=== PATIENT | female | born 1990 | race American Indian/Alaskan Native ===

== ENCOUNTER 2019-09-21 13:32 | Emergency (ER) | payer BC, OTHER ==
[~2019-09-21] VITALS: Ht 167.6 cm; Wt 108.9 kg
--- OUTSIDE RECORDS SUMMARY | ~2019-09-21 | XMS | Encounter Summary ---
Demographics + + + | Address | [address] | | | [place] [address] | + + + | Home Phone | | + + + | Preferred Language | Unknown | + + + | Marital Status | Single | + + + | Sabianist Affiliation | Unknown | + + + | Race | Unknown | + + + | Ethnic Group | Unknown | + + + Author + + + | Author | [facility] | | | and [place] | + + + | Organization | [facility] | | | and [place] | + + + | Address | Unknown | + + + | Phone | Unavailable | + + + Support + + + + + | Name | Relationship | Address | Phone | + + + + + | Pam Argueta | ECON | [place] | | | | | [phone] | | + + + + + | Marshall Argueta | ECON | Unknown | | + + + + + Care Team Providers + +------+ + | Care Sole Rounder Name | Role | Phone | + +------+ + | Alexandrea Latham | PCP | | + +------+ + Reason for Visit + + + | Reason | Comments | + + + | Dizziness | | + + + | Slurred Speech | | + + + Auth/Cert +--------+--------+ + + + + | Status | Reason | Specialty | Diagnoses / | Referred By | Referred To | | | | | Procedures | Contact | Contact | +--------+--------+ + + + + | | | | | | | +--------+--------+ + + + + Encounter Details +--------+ + + + + | Date | Type | Department | Care Team | Description | +--------+ + + + + | 05/18/ | Emergency | [facility] | Eduardo Dao | Vertigo (Primary Dx) | | 2019 | | [facility] | S[place], DO [address] | | | | | CENTER [address] | [address] [place] | | | | | [place], [place] | [place] [address] | | | | | [address] | [phone] | | | | | [phone] | | | +--------+ + + + + Social History + +-------+ +--------+------+ | Tobacco Use | Types | Packs/Day | Years | Date | | | | | Used | | + +-------+ +--------+------+ | Former Smoker | | | | | + +-------+ +--------+------+ + +---+---+---+ | Smokeless Tobacco: | | | | | Never Used | | | | + +---+---+---+ + + +---------+ + | Alcohol Use | Drinks/Week | oz/Week | Comments | + + +---------+ + | No | | | rare | + + +---------+ + + + + | Sex Assigned at | Date Recorded | | | | + + + | Not on file | | + + + + + + + | Job Start Date | Occupation | Industry | + + + + | Not on file | Not on file | Not on file | + + + + + + + + | Travel History | Travel Start | Travel End | + + + + + + | No recent travel history available. | + + documented as of this encounter Last Filed Vital Signs + + + + + | Vital Sign | Reading | Time Taken | Comments | + + + + + | Blood Pressure | 129/64 | 05/18/2019 3:30 PM | | | | | PDT | | + + + + + | Pulse | 80 | 05/18/2019 3:30 PM | | | | | PDT | | + + + + + | Temperature | 37.2 C (98.9 F) | 05/18/2019 12:11 PM | | | | | PDT | | + + + + + | Respiratory Rate | 21 | 05/18/2019 3:30 PM | | | | | PDT | | + + + + + | Oxygen Saturation | 96% | 05/18/2019 3:30 PM | | | | | PDT | | + + + + + | Inhaled Oxygen | - | - | | | Concentration | | | | + + + + + | Weight | 108.9 kg (240 lb) | 05/18/2019 12:11 PM | | | | | PDT | | + + + + + | Height | 167.6 cm (5' 6") | 05/18/2019 12:11 PM | | | | | PDT | | + + + + + | Body Mass Index | 38.74 | 05/18/2019 12:11 PM | | | | | PDT | | + + + + + documented in this encounter Discharge Instructions Eduardo Garibay, - 05/18/2019 Modified Gilda maneuver for self-treatment of benign positional vertigo (left) This maneuver should be carried out three times a day. Repeat this daily until you are free from positional vertigo for 24 hours. AttachmentsThe following attachments cannot be sent through Care Everywhere.Dizziness (Vert igo) and Balance Problems: Staying Safe ([place]vian)documented in this encounter Medications at Time of Discharge + + + +---------+ + + | Medication | Sig | Dispensed | Refills | Start | End Date | | | | | | Date | | + + + +---------+ + + | acyclovir | Take 200 mg by mouth | | 0 | | | | (ZOVIRAX) 200 mg | 2 times daily. | | | | | | capsule | | | | | | + + + +---------+ + + | amoxicillin | Take 250 mg by mouth | | 0 | | | | (AMOXIL) 250 mg | 2 times daily. | | | | | | capsule | | | | | | + + + +---------+ + + | Cetirizine HCl | Take by mouth. | | 0 | | | | (ZYRTEC ALLERGY PO) | | | | | | + + + +---------+ + + | | Place 1 each | | 0 | | | | etonogestrel-ethinyl | vaginally See Admin | | | | | | estradiol | Instructions. Insert | | | | | | (NUVARING) | vaginally and leave | | | | | | 0.12-0.015 MG/24HR | in place for 3 | | | | | | vaginal ring | consecutive weeks, | | | | | | | then remove for 1 | | | | | | | week. | | | | | + + + +---------+ + + | FLUoxetine | Take 40 mg by mouth | | 0 | | | | (PROZAC) 40 MG | Daily. | | | | | | capsule | | | | | | + + + +---------+ + + | fluticasone | 1 spray by Nasal | | 0 | | | | (FLONASE) 50 | route Daily. | | | | | | mcg/nasal spray | | | | | | + + + +---------+ + + | | Take 5-325 mg by | | 0 | 12/15/20 | | | HYDROcodone-acetamin | mouth Twice daily. | | | 14 | | | ophen (NORCO) 5-325 | | | | | | | mg per tablet | | | | | | + + + +---------+ + + | Loratadine | Take 1 capsule by | | 0 | | | | (CLARITIN) 10 MG | mouth Daily. | | | | | | CAPS | | | | | | + + + +---------+ + + | meclizine | Take 1 tablet by | 60 | 0 | 05/18/20 | | | (ANTIVERT) 25 mg | mouth 3 times daily | tablet | | 19 | | | tablet | as needed. | | | | | + + + +---------+ + + | RANITIDINE HCL PO | Take by mouth. | | 0 | | | + + + +---------+ + + | rizatriptan | Take 1 tablet by | 30 | 3 | 07/12/20 | | | (MAXALT-FOCUSER) 10 mg | mouth as needed for | tablet | | 14 | | | disintegrating | Migraine. May repeat | | | | | | tablet | in 2 hours if | | | | | | | needed | | | | | + + + +---------+ + + | traMADol (ULTRAM) | Take 50 mg by mouth | | 0 | | | | 50 mg tablet | as needed. | | | | | + + + +---------+ + + documented as of this encounter Plan of Treatment Not on filedocumented as of this encounter Procedures + +--------+ + + + | Procedure Name | Priori | Date/Time | Associated Diagnosis | Comments | | | ty | | | | + +--------+ + + + | CT HEAD WO CONTRAST | STAT | 05/18/2019 | | Results for this | | | | 2:06 PM | | procedure are in the | | | | PDT | | results section. | + +--------+ + + + | HCG, URINE, QUAL | STAT | 05/18/2019 | | Results for this | | | | 1:36 PM | | procedure are in the | | | | PDT | | results section. | + +--------+ + + + | URINALYSIS WITH | STAT | 05/18/2019 | | Results for this | | MICROSCOPIC | | 1:36 PM | | procedure are in the | | | | PDT | | results section. | + +--------+ + + + | EXTRA GREEN TOP TUBE | STAT | 05/18/2019 | | Results for this | | | | 12:32 PM | | procedure are in the | | | | PDT | | results section. | + +--------+ + + + | EXTRA GOLD TOP TUBE | STAT | 05/18/2019 | | Results for this | | | | 12:32 PM | | procedure are in the | | | | PDT | | results section. | + +--------+ + + + | EXTRA BLUE TOP TUBE | STAT | 05/18/2019 | | Results for this | | | | 12:32 PM | | procedure are in the | | | | PDT | | results section. | + +--------+ + + + | CBC WITH | STAT | 05/18/2019 | | Results for this | | DIFFERENTIAL | | 12:32 PM | | procedure are in the | | | | PDT | | results section. | + +--------+ + + + | COMPREHENSIVE | STAT | 05/18/2019 | | Results for this | | METABOLIC PANEL | | 12:32 PM | | procedure are in the | | | | PDT | | results section. | + +--------+ + + + | ECG 12 LEAD | STAT | 05/18/2019 | | Results for this | | | | 12:26 PM | | procedure are in the | | | | PDT | | results section. | + +--------+ + + + documented in this encounter Results CT Head wo Contrast (05/18/2019 2:06 PM PDT) + + | Specimen | + + | | + + + + + | Narrative | Performed At | + + + | CT HEAD WO CONTRAST 05/18/2019 2:03 PM HISTORY: DIZZINESS | [facility] | | SLURRED SPEECH. COMPARISON: None. PROTOCOL: Axial images of | | | the head were obtained along with coronal and sagittal reformations. | | | FINDINGS: The brain parenchyma demonstrates no evidence for acute | | | infarct, mass lesion, or hemorrhage. The brainstem is unremarkable. | | | The cerebellum is normal. The pituitary gland is grossly normal. | | | The ventricles, cisterns, and sulci are of normal size and shape. | | | Limited evaluation of the vasculature demonstrates no acute findings. | | | The orbits show no acute findings. Paranasal sinuses are clear. | | | Mastoid air cells are normal. Calvarium, temporal bones, and | | | skull base structures are unremarkable. IMPRESSION - No acute | | | intracranial findings. If clinically indicated, MRI can be | | | considered. Dictated and Signed by: Suman Brooks MD | | | Electronically signed: 05/18/2019 2:21 PM | | + + + + + | Procedure Note | + + | Blaze, Rad Results In - 05/18/2019 2:[address] HEAD WO CONTRAST 05/18/2019 2:03 PM | | | | HISTORY: DIZZINESS | | SLURRED SPEECH. | | | | COMPARISON: None. | | | | PROTOCOL: Axial images of the head were obtained along with coronal and sagittal | | reformations. | | | | FINDINGS: | | The brain parenchyma demonstrates no evidence for acute infarct, mass lesion, or | | hemorrhage. The brainstem is unremarkable. The cerebellum is normal. The | | pituitary gland is grossly normal. | | | | The ventricles, cisterns, and sulci are of normal size and shape. | | | | Limited evaluation of the vasculature demonstrates no acute findings. | | | | The orbits show no acute findings. Paranasal sinuses are clear. Mastoid air | | cells are normal. | | | | Calvarium, temporal bones, and skull base structures are unremarkable. | | | | IMPRESSION - | | No acute intracranial findings. | | | | If clinically indicated, MRI can be considered. | | | | Dictated and Signed by: Suman Brooks MD | | Electronically signed: 05/18/2019 2:21 PM | + + + +---------+ + + | Performing | Address | City/State/Zipcode | Phone Number | | Organization | | | | + +---------+ + + | [facility] | | | | + +---------+ + + Urinalysis With Microscopic (05/18/2019 1:36 PM PDT) + + + + + + | Component | Value | Ref Range | Performed | Pathologist | | | | | At | Signature | + + + + + + | Color | Straw | Light Yellow, | [facility] | | | | | Yellow, Straw | [facility] | | | | | | [facility] | | | | | | [facility] - | | | | | | LABORATORY | | + + + + + + | Clarity | Clear | Clear | [facility] | | | | | | [facility] | | | | | | [facility] | | | | | | [facility] - | | | | | | LABORATORY | | + + + + + + | pH, Urine | 7.0 | 5.0 - 8.0 | [facility] | | | | | | [facility] | | | | | | [facility] | | | | | | [facility] - | | | | | | LABORATORY | | + + + + + + | Specific | 1.005 | 1.001 - 1.030 | [facility] | | | [place] | | | [facility] | | | | | | [facility] | | | | | | [facility] - | | | | | | LABORATORY | | + + + + + + | Protein, | Negative | Negative | [facility] | | | Urine | | | [facility] | | | | | | [facility] | | | | | | C[facility] - | | | | | | LABORATORY | | + + + + + + | Blood, | Negative | Negative | [facility] | | | Urine | | | [facility] | | | | | | [facility] | | | | | | CENTER - | | | | | | LABORATORY | | + + + + + + | Glucose, | Negative | Negative | [facility] | | | Urine | | | [facility] | | | | | | [facility] | | | | | | CENTER - | | | | | | LABORATORY | | + + + + + + | Ketones, | Negative | Negative | [facility] | | | Urine | | | [facility] | | | | | | [facility] | | | | | | CENTER - | | | | | | LABORATORY | | + + + + + + | Bilirubin, | Negative | Negative | [facility] | | | Urine | | | [facility] | | | | | | [facility] | | | | | | CENTER - | | | | | | LABORATORY | | + + + + + + | Nitrite, | Negative | Negative | [facility] | | | Urine | | | [facility] | | | | | | [facility] | | | | | | CENTER - | | | | | | LABORATORY | | + + + + + + | Leukocyte | Trace (A) | Negative | [facility] | | | Esterase, | | | [facility] | | | Urine | | | MEDICAL | | | | | | CENTER - | | | | | | LABORATORY | | + + + + + + | Urobilinoge | Negative | 0.2 mg/dL, 1.0 | [facility] | | | n, Urine | | mg/dL, Negative | [facility] | | | | | | [facility] | | | | | | CENTER - | | | | | | LABORATORY | | + + + + + + | WBC UA | 15-25 (A) | 0 - 2 /HPF | [facility] | | | | | | [facility] | | [facility] | [facility] | [facility] | | | | | | [facility] - | | | | | | LABORATORY | | + + + + + + + + | Specimen | + + | Urine - Urine | | specimen obtained by | | clean catch | | procedure (specimen) | + + + + + + + | Performing | Address | City/State/Zipcode | Phone Number | | Organization | | | | + + + + + | [facility] | [address] | [place] | [phone] | | [facility] | | [address] | | | - LABORATORY | | | | + + + + + , Urine, Qual (05/18/2019 1:36 PM PDT) + + + + + + | Component | Value | Ref Range | Performed | Pathologist | | | | | At | Signature | + + + + + + | HCG SCREEN, | Negative | Negative | [facility] | | | URINE | | | [facility] | [facility] | | | | | | [facility] - | | | | | | LABORATORY | | + + + + + + + + | Specimen | + + | Urine - Urine | | specimen obtained by | | clean catch | | procedure (specimen) | + + + + + + + | Performing | Address | City/State/Zipcode | Phone Number | | Organization | | | | + + + + + | [facility] | [address] | [place], [place] | [phone] | | [facility] | | [address] | | | - LABORATORY | | | | + + + + + Extra Gold Top Tube (05/18/2019 12:32 PM PDT) + +-------+ + + + | Component | Value | Ref Range | Performed | Pathologist | | | | | At | Signature | + +-------+ + + + | Extra Gold | Done | | [facility] | | | Top Tube | | | [facility] | | | | | | MEDICAL | | | | | | CENTER - | | | | | | LABORATORY | | + +-------+ + + + + + | Specimen | + + | Blood | + + + + + + + | Performing | Address | City/State/Zipcode | Phone Number | | Organization | | | | + + + + + | [facility] | [address] | [place] | [phone] | | [facility] | | [address] | | | - LABORATORY | | | | + + + + + Extra Green Top Tube (05/18/2019 12:32 PM PDT) + +-------+ + + + | Component | Value | Ref Range | Performed | Pathologist | | | | | At | Signature | + +-------+ + + + | Extra Green | Done | | [facility] | | | Top Tube | | | [facility] | | | | | | [facility] | | | | | | CENTER - | | | | | | LABORATORY | | + +-------+ + + + + + | Specimen | + + | Blood | + + + + + + + | Performing | Address | City/State/Zipcode | Phone Number | | Organization | | | | + + + + + | [facility] | [address] | [place] | [phone] | | [facility] | | [address] | | | - LABORATORY | | | | + + + + + Extra Blue Top Tube (05/18/2019 12:32 PM PDT) + +-------+ + + + | Component | Value | Ref Range | Performed | Pathologist | | | | | At | Signature | + +-------+ + + + | Extra Blue | Done | | [facility] | | | Top Tube | | | [facility] | | | | | | [facility] | | | | | | CENTER - | | | | | | LABORATORY | | + +-------+ + + + + + | Specimen | + + | Blood | + + + + + + + | Performing | Address | City/State/Zipcode | Phone Number | | Organization | | | | + + + + + | [facility] | [address] | [place] | [phone] | | [facility] | | [address] | | | - LABORATORY | | | | + + + + + Comprehensive Metabolic Panel (05/18/2019 12:32 PM PDT) + + + + + + | Component | Value | Ref Range | Performed | Pathologist | | | | | At | Signature | + + + + + + | Na | 135 (L) | 136 - 145 | [facility] | | | | | mmol/L | [facility] | | | | | | [facility] | | | | | | CENTER - | | | | | | LABORATORY | | + + + + + + | K | 3.5 | 3.4 - 5.1 | [facility] | | | | | mmol/L | [facility] | | | | | | MEDICAL | | | | | | CENTER - | | | | | | LABORATORY | | + + + + + + | Cl | 103 | 98 - 107 mmol/L | [facility] | | | | | | [facility] | | | | | | MEDICAL | | | | | | CENTER - | | | | | | LABORATORY | | + + + + + + | CO2 | 23 | 20 - 31 mmol/L | [facility] | | | | | | [facility] | | | | | | [facility]ICAL | | | | | | CENTER - | | | | | | LABORATORY | | + + + + + + | Anion Gap | 9 | 3 - 16 mmol/L | [facility] | | | | | | [facility] | | | | | | [facility] | | | | | | CENTER - | | | | | | LABORATORY | | + + + + + + | Glucose | 80 | 60 - 106 mg/dL | [facility] | | | | | | [facility] | | | | | | [facility] | | | | | | CENTER - | | | | | | LABORATORY | | + + + + + + | BUN | 7 (L) | 9 - 23 mg/dL | [facility] | | | | | | [facility] | | | | | | [facility] | | | | | | CENTER - | | | | | | LABORATORY | | + + + + + + | Creatinine | 0.64 | 0.55 - 1.02 | [facility] | | | | | mg/dL | [facility] | | | | | | MEDICAL | | | | | | CENTER - | | | | | | LABORATORY | | + + + + + + | eGFR if not | >60Comment: GLOMERULAR | >=60 | [facility] | | | | FILTRATION | mL/min/1.73m2 | [facility] | | | [place] | RATE,ESTIMATED | | MEDICAL | | | | mL/min/1.24a7Mzzj than | | CENTER - | | | | 60 Chronic kidney | | LABORATORY | | | | disease,if found over a | | | | | | 3-month period.Less than | | | | | | 15 Kidney failureFor | | | | | | | | | | | | Americans,multiply the | | | | | | calculated GFR by 1.21. | | | | | | | | | | + + + + + + | Calcium | 9.6 | 8.7 - 10.4 | [facility] | | | | | mg/dL | [facility] | | | | | | MEDICAL | | | | | | CENTER - | | | | | | LABORATORY | | + + + + + + | Albumin | 4.4 | 3.2 - 4.8 g/dL | [facility] | | | | | | [facility] | | | | | | [facility] | | | | | | C[facility] - | | | | | | LABORATORY | | + + + + + + | Bilirubin | 0.3 | 0.3 - 1.2 mg/dL | [facility] | | | Total | | | [facility] | | | | | | [facility] | | | | | | CENTER - | | | | | | LABORATORY | | + + + + + + | Total | 7.5 | 5.7 - 8.2 g/dL | [facility] | | | Protein | | | [facility] | | | | | | [facility] | | | | | | CENTER - | | | | | | LABORATORY | | + + + + + + | AST | 12 | 0 - 34 U/L | [facility] | | | | | | [facility] | | | | | | [facility] | | | | | | CENTER - | | | | | | LABORATORY | | + + + + + + | ALT | 13 | 10 - 49 U/L | [facility] | | | | | | [facility] | | | | | | [facility] | | | | | | CENTER - | | | | | | LABORATORY | | + + + + + + | Alkaline | 91 | 46 - 116 U/L | [facility] | | | Phosphatase | | | [facility] | | | | | | [facility] | | | | | | CENTER - | | | | | | LABORATORY | | + + + + + + | Globulin | 3.1 | 2.1 - 3.8 g/dL | [facility] | | | | | | [facility] | | | | | | [facility] | | | | | | CENTER - | | | | | | LABORATORY | | + + + + + + | Albumin/Arcelia | 1.4 | 0.8 - 1.9 | [facility] | | | bulin Ratio | | | [facility] | | | | | | [facility]ICAL | | | | | | CENTER - | | | | | | LABORATORY | | + + + + + + | BUN/Creatin | 10.9 | | [facility] | | | ine Ratio | | | [facility] | | | | | | [facility] | | | | | | CENTER - | | | | | | LABORATORY | | + + + + + + + + | Specimen | + + | Blood | + + + + + + + | Performing | Address | City/State/Zipcode | Phone Number | | Organization | | | | + + + + + | [facility] | [address] | [place] | [phone] | | [facility] | | [address] | | | - LABORATORY | | | | + + + + + CBC with Differential (05/18/2019 12:32 PM PDT) + + + + + + | Component | Value | Ref Range | Performed | Pathologist | | | | | At | Signature | + + + + + + | WBC | 9.5 | 4.0 - 11.0 K/uL | [facility] | | | | | | [facility] | | | | | | [facility] | | | | | | [facility] - | | | | | | LABORATORY | | + + + + + + | RBC | 4.49 | 3.70 - 5.20 | [facility] | | | | | M/uL | [facility] | | | | | | [facility] | | | | | | CENTER - | | | | | | LABORATORY | | + + + + + + | Hemoglobin | 13.5 | 11.5 - 16.0 | [facility] | | | | | g/dL | [facility] | | | | | | [facility] | | | | | | CENTER - | | | | | | LABORATORY | | + + + + + + | Hematocrit | 40.1 | 34.0 - 47.0 % | [facility] | | | | | | [facility] | | | | | | [facility] | | | | | | C[facility] - | | | | | | LABORATORY | | + + + + + + | MCV | 89.3 | 83.0 - 101.0 fL | [facility] | | | | | | [facility] | | | | | | [facility] | | | | | | CENTER - | | | | | | LABORATORY | | + + + + + + | MCH | 30.1 | 28.0 - 35.0 pg | [facility] | | | | | | [facility] | | | | | | [facility] | | | | | | C[facility] - | | | | | | LABORATORY | | + + + + + + | MCHC | 33.7 | 32.0 - 36.0 | [facility] | | | | | g/dL | [facility] | | | | | | [facility] | | | | | | CENTER - | | | | | | LABORATORY | | + + + + + + | RDW-CV | 13.1 | <15.0 % | [facility] | | | | | | [facility] | | | | | | [facility] | | | | | | C[facility] - | | | | | | LABORATORY | | + + + + + + | RDW-SD | 42.7 | 35.1 - 46.3 fL | [facility] | | | | | | [facility] | | | | | | [facility] | | | | | | C[facility] - | | | | | | LABORATORY | | + + + + + + | Platelet | 378 | 140 - 440 K/uL | [facility] | | | Count | | | [facility] | | | | | | [facility] | | | | | | CENTER - | | | | | | LABORATORY | | + + + + + + | MPV | 9.3 | 6.5 - 12.4 fL | [facility] | | | | | | [facility] | | | | | | [facility] | | | | | | C[facility] - | | | | | | LABORATORY | | + + + + + + | % | 64.6 | 45.0 - 82.0 % | [facility] | | | Neutrophils | | | [facility] | | | | | | [facility] | | | | | | CENTER - | | | | | | LABORATORY | | + + + + + + | % | 27.0 | 20.0 - 45.0 % | [facility] | | | Lymphocytes | | | [facility] | | | | | | [facility] | | | | | | CENTER - | | | | | | LABORATORY | | + + + + + + | % Monocytes | 5.2 | 4.0 - 12.0 % | [facility] | | | | | | [facility] | | | | | | [facility] | | | | | | CENTER - | | | | | | LABORATORY | | + + + + + + | % | 1.9 | 0.0 - 5.0 % | [facility] | | | Eosinophils | | | [facility] | | | | | | MEDICAL | | | | | | CENTER - | | | | | | LABORATORY | | + + + + + + | % Basophils | 0.8 | 0.0 - 1.0 % | [facility] | | | | | | [facility] | | | | | | [facility] | | | | | | CENTER - | | | | | | LABORATORY | | + + + + + + | % Immature | 0.5 (H)Comment: | 0.0 - 0.4 % | [facility] | | | Granulocyte | Preliminary studies have | | [facility] | | | s | indicated the IG% | | MEDICAL | | | | and/or IG# show promise | | CENTER - | | | | as an early indicator | | LABORATORY | | | | for infection. For | | | | | | patients, use | | | | | | the special reference | | | | | | ranges listed below. | | | | + + + + + + | Absolute | 6.15 | 1.80 - 8.50 | [facility] | | | Neutrophils | | K/uL | [facility] | | | | | | MEDICAL | | | | | | CENTER - | | | | | | LABORATORY | | + + + + + + | Absolute | 2.58 | 0.60 - 3.20 | [facility] | | | Lymphocytes | | K/uL | [facility] | | | | | | MEDICAL | | | | | | CENTER - | | | | | | LABORATORY | | + + + + + + | Absolute | 0.50 | 0.00 - 1.00 | [facility] | | | Monocytes | | K/uL | [facility] | | | | | | [facility] | | | | | | CENTER - | | | | | | LABORATORY | | + + + + + + | Absolute | 0.18 | 0.00 - 0.40 | [facility] | | | Eosinophils | | K/uL | [facility] | | | | | | [facility] | | | | | | CENTER - | | | | | | LABORATORY | | + + + + + + | Absolute | 0.08 | 0.00 - 0.10 | [facility] | | | Basophils | | K/uL | [facility] | | | | | | [facility] | | | | | | CENTER - | | | | | | LABORATORY | | + + + + + + | Absolute | 0.05 (H)Comment: For | 0.00 - 0.03 | [facility] | | | Immature | patients, use | K/uL | [facility] | | | Granulocyte | the special reference | | MEDICAL | | | s | ranges listed below. | | CENTER - | | | | | | LABORATORY | | + + + + + + | % nRBC | 0 | 0 - 2 per 100 | [facility] | | | | | WBCs | [facility] | | | | | | MEDICAL | | | | | | CENTER - | | | | | | LABORATORY | | + + + + + + | Absolute | 0.00 | 0.00 - 0.01 | [facility] | | | nRBC | | K/uL | [facility] | | | | | | MEDICAL | | | | | | CENTER - | | | | | | LABORATORY | | + + + + + + + + | Specimen | + + | Blood | + + + + + | Narrative | Performed At | + + + | IMMATURE GRANULOCYTES - For patients, use the following | [facility] | | reference ranges: Trim. Absolute (K/uL) Percentage (%) | [facility] | | 1st 0.003-0.091 K/uL 0.0-0.9% 2nd 0.007-0.247 K/uL | [facility] | | 0.1-2.0% 3rd 0.018-0.456 K/uL 0.1-2.0% | - LABORATORY | + + + + + + + + | Performing | Address | City/State/Zipcode | Phone Number | | Organization | | | | + + + + + | [facility] | [address] | [place] | [phone] | | [facility] | | [id number] | | | - LABORATORY | | | | + + + + + ECG 12 lead (05/18/2019 12:26 PM PDT) + + + + + + | Component | Value | Ref Range | Performed | Pathologist | | | | | At | Signature | + + + + + + | VENTRICULAR | 93 | BPM | [facility] | | | RATE EKG | | | | | + + + + + + | ATRIAL RATE | 93 | BPM | [facility] | | + + + + + + | P-R | 172 | ms | [facility] | | | INTERVAL | | | | | + + + + + + | QRS | 84 | ms | [facility] | | | DURATION | | | | | + + + + + + | Q-T | 374 | ms | [facility] | | | INTERVAL | | | | | + + + + + + | Q-T | 465 | ms | [facility] | | | INTERVAL | | | | | | (CORRECTED) | | | | | + + + + + + | P WAVE AXIS | 52 | degrees | [facility] | | + + + + + + | QRS AXIS | 39 | degrees | [facility] | | + + + + + + | T AXIS | 24 | degrees | [facility] | | + + + + + + | INTERPRETAT | Normal sinus | | [facility] | | | ION TEXT | rhythmNormal ECGNo | | | | | | previous ECGs | | | | | | availableConfirmed by | | | | | | NATALIA CORDOVA MD ([id number]) | | | | | | on 05/19/2019 7:21:31 AM | | | | + + + + + + + + | Specimen | + + | | + + + + + | Narrative | Performed At | + + + | | | + + + + +---------+ + + | Performing | Address | City/State/Zipcode | Phone Number | | Organization | | | | + +---------+ + + | [facility] | | | | + +---------+ + + documented in this encounter Visit Diagnoses + + | Diagnosis | + + | Vertigo - Primary Dizziness and giddiness | + + documented in this encounter Administered Medications + +--------+ +-------+------+------+ | Medication Order | MAR | Action | Dose | Rate | Site | | | Action | Date | | | | + +--------+ +-------+------+------+ | meclizine (ANTIVERT) tablet 25 | Given | 05/18/20 | 25 mg | | | | mg 25 mg, Oral, ONCE, [place] | | 19 12:29 | | | | | 05/18/19 at 1220, For 1 dose | | PM PDT | | | | + +--------+ +-------+------+------+ +---+---+ | | | +---+---+ + +---------+ +--------+-------+---+ | sodium chloride 0.9% (NS) bolus | New Bag | 05/18/20 | 1,000 | 2000 | | | 1,000 mL 1,000 mL, Intravenous, | | 19 12:31 | mLs | mL/hr | | | Administer over 30 Minutes, | | PM PDT | | | | | ONCE, [facility] 05/18/19 at 1220, For 1 | | | | | | | dose | | | | | | + +---------+ +--------+-------+---+ +---+---+ | | | +---+---+ documented in this encounter
--- OUTSIDE RECORDS SUMMARY | ~2019-09-21 | XMS | Encounter Summary ---
Demographics + + + | Address | [address] | | | [place] [address] | + + + | Home Phone | | + + + | Preferred Language | Unknown | + + + | Marital Status | Single | + + + | Yarsani Affiliation | Unknown | + + + | Race | Unknown | + + + | Ethnic Group | Unknown | + + + Author + + + | Author | [facility] | | | and [place] | + + + | Organization | [facility] | | | and [place] | + + + | Address | Unknown | + + + | Phone | Unavailable | + + + Support + + + + + | Name | Relationship | Address | Phone | + + + + + | Pam Argueta | ECON | [place] | | | | | [address] | | + + + + + | Marshall Argueta | ECON | Unknown | | + + + + + Care Team Providers + +------+ + | Care Android Framework Developer Name | Role | Phone | + +------+ + | No, Physician | PCP | Unavailable | + +------+ + Reason for Visit + + + | Reason | Comments | + + + | Follow-up | migraine f/u | + + + Encounter Details +--------+---------+ + + + | Date | Type | Department | Care Team | Description | +--------+---------+ + + + | 08/13/ | Office | [facility] | Ranjan Garner | Migraines (Primary | | 2013 | Visit | NEUROLOGY JULIO CÉSAR | MD Evan Need updated | Dx); Tension | | | | [address] [facility], | address | headache; Blurred | | | | [address] [place] | | vision | | | | [place] [address] | | | | | | [phone] | | | +--------+---------+ + + + Social History + +-------+ +--------+------+ | Tobacco Use | Types | Packs/Day | Years | Date | | | | | Used | | + +-------+ +--------+------+ | Never Smoker | | | | | + +-------+ +--------+------+ + +---+---+---+ | Smokeless Tobacco: | | | | | Never Used | | | | + +---+---+---+ + + +---------+ + | Alcohol Use | Drinks/Week | oz/Week | Comments | + + +---------+ + | Yes | | | rare | + + [...] + + + | Blood Pressure | 112/74 | 08/13/2014 1:59 PM | | | | | PDT | | + + + + + | Pulse | 97 | 08/13/2014 1:59 PM | | | | | PDT | | + + + + + | Temperature | - | - | | + + + + + | Respiratory Rate | 16 | 08/13/2014 1:59 PM | | | | | PDT | | + + + + + | Oxygen Saturation | - | - | | + + + + + | Inhaled Oxygen | - | - | | | Concentration | | | | + + + + + | Weight | 90.7 kg (200 lb) | 08/13/2014 1:59 PM | | | | | PDT | | + + + + + | Height | 167.6 cm (5' 6") | 08/13/2014 1:59 PM | | | | | PDT | | + + + + + | Body Mass Index | 32.28 | 08/13/2014 1:59 PM | | | | | PDT | | + + + + + documented in this encounter Patient Instructions Patient Instructions Ranjan Garner MD - 08/13/2014 2:19 PM PDTFormatting of this n ote might be different from the original. 1) Try massage therapy 2) Butterbur and Reglan for migraines 3) MRI scan. Self-Care for Headaches Most headaches aren't serious and can be relieved with self-care. But some headaches may be a sign of another health problem like eye trouble or high blood pressure. To find the best treatment, learn what kind of headaches you get. For tension headaches, self-care will usual ly help. To treat migraines, ask your doctor for advice. It is also possible to get both ten diogo and migraine headaches. Self-care involves relieving the pain and avoiding headache triggers if you can. Ways to Reduce Pain and Tension Apply a cold compress or ice pack to the pain site. Drink fluids. If nausea makes it hard to drink, try sucking on ice. Rest. Protect yourself from bright light and loud noises. Calm your emotions by imagining a peaceful scene. Massage tight neck, shoulder, and head muscles. To relax muscles, soak in a hot bath or use a hot shower. Use Medications Aspirin or aspirin substitutes, such as ibuprofen and acetaminophen, can relieve headache. Remember: Never give aspirin to anyone 18 or younger. Track Your Headaches Keeping a headache diary can help you and your doctor identify what's causing your headache s. Note when each headache occurs. Identify your activities and the foods you've eaten 6 8 hours before the headache bega n. Look for any trends or "triggers." Signs of Tension Headache Dull pain or feeling of pressure in a tight band around your head Pain in your neck or shoulders Headache without a definite beginning or end Headache after an activity such as driving or working on a computer Signs of Migraine Throbbing pain on one or both sides of your head Nausea or vomiting Extreme sensitivity to light, sound, and smells Bright spots, flashes, or other visual changes Pain or nausea so severe that you can't continue your daily activities Call Your Doctor If You Have: A headache that lingers after a recent injury or bump to the head. A fever with a stiff neck or pain when you bend your head toward your chest. A headache along with slurred speech, changes in your vision, or numbness or weakness in your arms or legs. A headache for longer than 3 days. Headaches often, especially in the morning. [id number] [place] [address]. All rights reserve d. This information is not intended as a substitute for professional medical care. Always fo llow your healthcare professional's instructions. documented in this encounter Progress Notes Ranjan Garner MD - 08/13/2014 2:01 PM PDTFormatting of this note might be differen t from the original. Ranjan Garner MD [address] [place] [address], [address] [place] [address] Neurology Outpatient ProgressNote Patient ID: Ms. Argueta is a 23 y.o. female with a pertinent history of anxiety, depression and migrai ne headaches, following up in neurology clinic for migraine management. Ms. Argueta was las t seen 07/12/14 and an MRI of the brain was ordered. Interval History: Since last visit, Ms. Argueta has really had no further migraine headaches. She endorses "t ension headaches" every other day or so, which have increased with some recent stressful lif e events. These headaches are bandlike, bihemispheric and improve with Tylenol. Ms. Shanae zelaya has not yet tried Reglan for nausea and headache management as she has not had a migraine. She recently had her eyes examined and notes that her prescription changed dramatically. Olman macias feels that her vision is more blurred than before. She denies any vision loss, double visi on, or transient symptoms when she bends over or bears down. She has no family or personal h istory of blood clots and currently uses the Nuvaring for contraception. Ms. Argueta denies any new focal neurologic deficits. She has not yet had her MRI scan. Past Medical History: Past Medical History Diagnosis Date Anxiety Asthma Depression Kidney stones Migraine Current Medications: Current Medications acyclovir (ZOVIRAX) 200 mg capsule (Taking) Take 200 mg by mouth 2 times daily. amoxicillin (AMOXIL) 250 mg capsule Take 250 mg by mouth 2 times daily. etonogestrel-ethinyl estradiol (NUVARING) 0.12-0.015 MG/24HR vaginal ring (Taking) Place 1 each vaginally See Admin Instructions. Insert vaginally and leave in place for 3 consecuti ve weeks, then remove for 1 week. fluticasone (FLONASE) 50 mcg/nasal spray (Taking) 1 spray by Nasal route Daily. Loratadine (CLARITIN) 10 MG CAPS (Taking) Take 1 capsule by mouth Daily. metoclopramide (REGLAN) 5 MG tablet Take 2 tablets by mouth Daily as needed. rizatriptan (MAXALT-DIRECT CHILL CASTER) 10 mg disintegrating tablet Take 1 tablet by mouth as needed for Migraine. May repeat in 2 hours if needed traMADol (ULTRAM) 50 mg tablet (Taking) Take 50 mg by mouth as needed. Allergies: No Known Allergies Social history and family history are otherwise unchanged. ROS: GENERALLY: No fever, no night sweats, no anemia, + fatigue, no recent profound weight juliann nges. EYES: No eye problems, + use of corrective lenses, no eye injury, no double vision, no bli ndness. EARS, NOSE, AND THROAT: No changes in taste or smell, no hearing difficulty, no ringing in the ears, no ear drainage, no dizziness, no voice changes, no difficulty swallowing, no sig nificant snoring, no sleep apnea, no sinus problems, no major dental work. NEUROLOGICALLY: Please see the review of systems discussed above in the history of present illness. In addition, the patient has headaches. PSYCHIATRIC: + depression, no sleep disorders, + anxiety, no bipolar disorder, no psychoti c episodes. CARDIOVASCULAR: No heart attacks, no heart murmur, no heart fluttering, no chest pain, no ankle swelling. LUNG DISEASE: No shortness of breath, no cough, no tuberculosis, no bloody cough, + asthma , no emphysema/COPD. GASTROINTESTINAL: No bowel disease, no nausea or vomiting, no rectal bleeding, no constipa tion, no stool incontinence, no liver disease, no gallbladder disease, no abdominal pain, no ulcers. KIDNEY DISEASE: No urinary frequency, no painful or difficult urination, no incontinence. ENDOCRINE: No diabetes, no thyroid disease, no osteopenia or osteoporosis, no breast drain age. SKIN: No breast lumps, no skin changes, no rashes, no itches. HEMATOLOGIC/LYMPHATIC: No enlarged lymph nodes, no easy or unusual bleeding, no personal h istory of cancer. RHEUMATOLOGIC: No joint arthritis, no rheumatoid arthritis. Examination: BP 112/74 | Pulse 97 | Resp 16 | Ht 1.676 m (5' 6") | Wt 90.719 kg (200 lb) | BMI 32.30 kg/ m2 General: well developed and well nourished HEENT: sclera clear, anicteric and oropharynx clear, no lesions Cardiovascular: no murmurs, mildly tachycardic. Respiratory: clear to auscultation, no wheezes or rales and unlabored breathing Extremities: peripheral pulses normal, no pedal edema, no clubbing or cyanosis Neurologic: Mental Status: alert, oriented to person, place, and time, speech is fluent Cranial Nerves: cranial nerves II-XII are intact. Reexamination of eyes reveals no optic di sc swelling. Motor: normal 5/5 strength in all tested muscle groups and no pronator drift Sensation: normal light touch Coordination/Cerebellar: rapid alternating movements normal and finger to nose normal Gait: normal. Radiographic Review: No new imaging. Laboratory Review: None Assessment: Ms. Argueta is a 23 y.o. female with a history of anxiety, depression and migraine headach es, following up in neurology clinic for migraine management. Migraines seem under better co ntrol without intervention. Tension headaches appropriately treated with Tylenol. Change in visual acuity is concerning. Will await MRI results (scheduled for ). No alarm signs in history or physical exam suggestive of increased intracranial pressure or mass. No histo ry to suggest venous sinus thrombosis. Plan: 1) MRI Brain 2) We will call patient with results of scan given she is coming from [place] ways away. 3) May consider LP to look for pseudotumor in the future if vision changes don't have a panda arer source. 4) Return to neurology clinic in 2 months 5) Patient may try Reglan and Butterbur if migraines become an issue again. I spent 25 minutes in visitation with Catarina Anali Argueta today with the majority of time spent counselling the patient on her diagnosis, options for her care, and coordinating her c are. Electronically signed by: Ranjan Garner MD, 08/13/2014 14:12Electronically jane d by Ranjan Garner MD at 08/14/2014 10:25 AM PDTdocumented in this encounter Plan of Treatment Not on filedocumented as of this encounter Visit Diagnoses + + | Diagnosis | + + | Migraines - Primary Migraine, unspecified, without mention of intractable migraine | | without mention of status migrainosus | + + | Tension headache | + + | Blurred vision Other specified visual disturbances | + + documented in this encounter
--- OUTSIDE RECORDS SUMMARY | ~2019-09-21 | XMS | Encounter Summary ---
Demographics + + + | Address | [address] | | | [place] [address] | + + + | Home Phone | | + + + | Preferred Language | Unknown | + + + | Marital Status | Single | + + + | Anabaptism Affiliation | Unknown | + + + | Race | Unknown | + + + | Ethnic Group | Unknown | + + + Author + + + | Author | [facility] | | | and [place] | + + + | Organization | [facility] | | | and [place] | + + + | Address | Unknown | + + + | Phone | Unavailable | + + + Support + + + + + | Name | Relationship | Address | Phone | + + + + + | Pam Argueta | ECON | [place] | | | | | [address] | | + + + + + | Marshall Argueta | ECON | Unknown | | + + + + + Care Team Providers + +------+ + | Care Sewing Techniques Demonstrator Name | Role | Phone | + [...] + | 08/13/ | Office | [facility] | Ranjan Garner | Migraines (Primary | | 2013 | Visit | NEUROLOGY JULIO CÉSAR | MD Evan Need updated | Dx); Tension | | | | [address] [facility], | address | headache; Blurred | | | | [address] [place] | | vision | | | | [place] [address] | | | | | | [phone] | | | +--------+---------+ + + + [...] days. Headaches often, especially in the morning. [address]234[address]5976 [place] [address]. All rights reserve d. This information is not intended as a substitute for professional medical care. Always fo llow your healthcare professional's instructions. documented in this encounter Progress Notes Ranjan Garner MD - 08/13/2014 2:01 PM PDTFormatting of this note might be differen t from the original. Ranjan Garner MD [address] [place] [address], [address] [place] [address] Neurology Outpatient ProgressNote Patient ID: Ms. Argueta [...] tablets by mouth Daily as needed. rizatriptan (MAXALT-FACILITY MANAGER) 10 mg disintegrating tablet Take 1 tablet [...]
--- OUTSIDE RECORDS SUMMARY | ~2019-09-21 | XMS | Encounter Summary ---
Demographics + + + | Address | [address] | | | [place] [address] | + + + | Home Phone | | + + + | Preferred Language | Unknown | + + + | Marital Status | Single | + + + | Gnosticism Affiliation | Unknown | + + + | Race | Unknown | + + + | Ethnic Group | Unknown | + + + Author + + + | Author | [facility] | | | and [place] | + + + | Organization | [facility] | | | and [place] | + + + | Address | Unknown | + + + | Phone | Unavailable | + + + Support + + + + + | Name | Relationship | Address | Phone | + + + + + | Pam Argueta | ECON | [place] | | | | | [address] | | + + + + + | Marshall Argueta | ECON | Unknown | | + + + + + Care Team Providers + +------+ + | Care Assembler Radio And Electrical Name | Role | Phone | + [...] + + | 05/18/ | Emergency | [facility] | Eduardo Dao | Vertigo (Primary Dx) | | 2019 | | [facility] | Silas, DO [address] | | | | CENTER [address] | [address] [place] | | | | | [place], [place] | [place] [address] | | | | | [address] | [phone] | | | | | [phone] | | | +--------+ + + + [...] (Vert igo) and Balance Problems: Staying Safe (Ivorian)documented in this encounter Medications at Time of [...] | 3 | 07/12/20 | | | (MAXALT-ZIPPER SETTER CHAINSTITCH) 10 mg | mouth as needed for [...] - 1.030 | [facility] | | | [place] | | | [facility] | | [...] + | [facility] | [address] | [place] | [phone] | | [facility] | | [address] | | | - LABORATORY | | [...] | | | URINE | | | [facility] | | | | | | MEDICAL [...] ST. | [address] | [place], [place] | [phone] | | [facility] | | [address] | | | - LABORATORY | | [...] [address] | [place] | [phone] | | [facility] | | [address] | | | - LABORATORY | | [...] [address] | [place] | [phone] | | [facility] | | [address] | | | - LABORATORY | | [...] + | [facility] | [address] | [place] | [phone] | | [facility] | | [address] | | | - LABORATORY | | [...] mL/min/1.73m2 | [facility] | | | [place] | RATE,ESTIMATED | | MEDICAL | | | | mL/min/1.66o3Faap than | | CENTER - | | [...] [facility] | | | | | | [facility] | | | | | | [...] [address] | [place] | [phone] | | [facility] | | [address] | | | - LABORATORY | | [...] ranges: Trim. Absolute (K/uL) Percentage (%) | [facility] | | 1st 0.003-0.091 K/uL 0.0-0.9% 2nd 0.007-0.247 K/uL | [facility] | | 0.1-2.0% 3rd 0.018-0.456 K/uL 0.1-2.0% | - LABORATORY | + + + + + + + + | Performing | Address | City/State/Zipcode | Phone Number | | Organization | | | | + + + + + | [facility] | [address] | [place] | [phone] | | [facility] | | [address] | | | - LABORATORY | | [...] | | | | NATALIA CORDOVA MD ([id number]) | | | | | | on [...] PDT | | | | | ONCE, [facility] 05/18/19 at 1220, For 1 | | | | | | | dose | | | | | | + +---------+ +--------+-------+---+ +---+---+ | | | +---+---+ documented in this encounter
--- OUTSIDE RECORDS SUMMARY | ~2019-09-21 | XMS | Clinical Summary ---
Demographics + + + | Address | [address] | | | [place] [address] | + + + | Home Phone | | + + + | Preferred Language | Unknown | + + + | Marital Status | Single | + + + | Islam Affiliation | Unknown | + + + | Race | Unknown | + + + | Ethnic Group | Unknown | + + + Author + + + | Author | [facility] | | | and [place] | + + + | Organization | [facility] | | | and [place] | + + + | Address | Unknown | + + + | Phone | Unavailable | + + + Support + + + + + | Name | Relationship | Address | Phone | + + + + + | Pam Argueta | ECON | [place], [place] | | | | | [address] | | + + + + + | Marshall Argueta | ECON | Unknown | | + + + + + Care Team Providers + +------+ + | Care Visual Education Teacher Name | Role | Phone | + +------+ + | Alexandrea Latham | PCP | | + +------+ + Allergies No Known Allergies Medications + + + +---------+------+------+-------+ | Medication | Sig | Dispensed | Refills | Star | End | Statu | | | | | | t | Date | s | | | | | | Date | | | + + + +---------+------+------+-------+ | | Place 1 each | | 0 | | | Activ | | etonogestrel-ethinyl | vaginally See Admin | | | | | e | | estradiol | Instructions. Insert | | | | | | | (NUVARING) | vaginally and leave | | | | | | | 0.12-0.015 MG/24HR | in place for 3 | | | | | | | vaginal ring | consecutive weeks, | | | | | | | | then remove for 1 | | | | | | | | week. | | | | | | + + + +---------+------+------+-------+ | acyclovir | Take 200 mg by mouth | | 0 | | | Activ | | (ZOVIRAX) 200 mg | 2 times daily. | | | | | e | | capsule | | | | | | | + + + +---------+------+------+-------+ | Loratadine | Take 1 capsule by | | 0 | | | Activ | | (CLARITIN) 10 MG | mouth Daily. | | | | | e | | CAPS | | | | | | | + + + +---------+------+------+-------+ | fluticasone | 1 spray by Nasal | | 0 | | | Activ | | (FLONASE) 50 | route Daily. | | | | | e | | mcg/nasal spray | | | | | | | + + + +---------+------+------+-------+ | traMADol (ULTRAM) | Take 50 mg by mouth | | 0 | | | Activ | | 50 mg tablet | as needed. | | | | | e | + + + +---------+------+------+-------+ | amoxicillin | Take 250 mg by mouth | | 0 | | | Activ | | (AMOXIL) 250 mg | 2 times daily. | | | | | e | | capsule | | | | | | | + + + +---------+------+------+-------+ | rizatriptan | Take 1 tablet by | 30 | 3 | 06/25 | | Activ | | (MAXALT-FLIGHT FOLLOWER) 10 mg | mouth as needed for | tablet | | 06/13 | | e | | disintegrating | Migraine. May repeat | | | 14 | | | | tablet | in 2 hours if | | | | | | | | needed | | | | | | + + + +---------+------+------+-------+ +---+ + | | Additional | | | informationPatient | | | not taking. Reason: | | | Not Available, | | | Reported on 01/28/2019 | | | 1:38 PM | +---+ + + + +--------+---+------+---+-------+ | | Take 5-325 mg by | | 0 | 09/24 | | Activ | | HYDROcodone-acetamin | mouth Twice daily. | | | 03/13 | | e | | ophen (NORCO) 5-325 | | | | 14 | | | | mg per tablet | | | | | | | + + +--------+---+------+---+-------+ | FLUoxetine | Take 40 mg by mouth | | 0 | | | Activ | | (PROZAC) 40 MG | Daily. | | | | | e | | capsule | | | | | | | + + +--------+---+------+---+-------+ | RANITIDINE HCL PO | Take by mouth. | | 0 | | | Activ | | | | | | | | e | + + +--------+---+------+---+-------+ | Cetirizine HCl | Take by mouth. | | 0 | | | Activ | | (ZYRTEC ALLERGY PO) | | | | | | e | + + +--------+---+------+---+-------+ | meclizine | Take 1 tablet by | 60 | 0 | 07/2 | | Activ | | (ANTIVERT) 25 mg | mouth 3 times daily | tablet | | 5/20 | | e | | tablet | as needed. | | | 19 | | | + + +--------+---+------+---+-------+ Active Problems Not on file Family History + + +------+ + | Medical History | Relation | Name | Comments | + + +------+ + | High blood pressure | Father | | | + + +------+ + | Substance abuse | Mother | | alcoholism-mother and father | + + +------+ + + +------+--------+ + | Relation | Name | Status | Comments | + +------+--------+ + | Father | | | | + +------+--------+ + | Mother | | | | + +------+--------+ + Social History + +-------+ +--------+------+ | [...] recent travel history available. | + + Last Filed Vital Signs + + + + + | Vital Sign | Reading | Time Taken | Comments | + + + + + | Blood Pressure | 118/105 | 05/18/2019 3:45 PM | | | | | PDT | | + + + + + | Pulse | 92 | 05/18/2019 3:45 PM | | | | | PDT | | + + + + + | Temperature | 37.2 C (98.9 F) | 05/18/2019 12:11 PM | | | | | PDT | | + + + + + | Respiratory Rate | 22 | 05/18/2019 3:45 PM | | | | | PDT | | + + + + + | Oxygen Saturation | 97% | 05/18/2019 3:45 PM | | | | | PDT [...] | | + + + + + Plan of Treatment + + + + + | Health Maintenance | Due Date | Last Done | Comments | + + + + + | Cervical Cancer | | | | | Screening (Pap) | 8 | | | + + + + + | Vaccine: Influenza | | 11/28/2018, 07/09/2014, | | | (#1) | 9 | 09/09/2012, Additional history | | | | | exists | | + + + + + | Vaccine: | | 10/08/2011 | | | Dtap/Tdap/Td (2 - | 1 | | | | Td) | | | | + + + + + Results Not on filefrom Last 3 Months Insurance + +--------+ +--------+ +---------+--------+ | Payer | Benefi | Subscriber | Effect | Phone | Address | Type | | | t Plan | ID | chris | | | | | | / | | Dates | | | | | | Group | | | | | | + +--------+ +--------+ +---------+--------+ | BCBS | BCBS | [id number] | 12/24/19 | | | PPO | | | [place] | | 19-Pre | | | | | | L FEP | | sent | | | | + +--------+ +--------+ +---------+--------+ | MEDICAID [place] | MEDICA | [id number] | 04/24/20 | [phone] | | Medica | | | [place] | | 18-Pre | 2 | | id | | | PLUS | | sent | | | | + +--------+ +--------+ +---------+--------+ | [facility] | IHS | [id number] | | | | Indemn | | SERVICE | YELLOW | | 014-Pr | | | ity | | | HAWK | | esent | | | | + +--------+ +--------+ +---------+--------+ + +--------+ +--------+ + + | Guarantor Name | Accoun | Relation to | Date | Phone | Billing Address | | | t Type | Patient | of | | | | | | | | | | + +--------+ +--------+ + + | Catarina Argueta | Person | Self | [birth year] | [address] | | | al/Fam | | 1990 | [phone] | [address] [place] | | | [place] | | | 9 (Home) | [address] | + +--------+ +--------+ + + Advance Directives + + + + + | Type | Date Recorded | Patient | Explanation | | | | Disposal Man | | + + + + + | Power of | | | | | Relief Master | | | | + + + + + | Advance | 01/28/2019 2:14 | | | | Directive | PM | | | + + + + +
--- OUTSIDE RECORDS SUMMARY | ~2019-09-21 | XMS | Encounter Summary ---
Demographics + + + | Address | [address] | | | [place] [address] | + + + | Home Phone | | + + + | Preferred Language | Unknown | + + + | Marital Status | Single | + + + | Baptism Affiliation | Unknown | + + + | Race | Unknown | + + + | Ethnic Group | Unknown | + + + Author + + + | Author | [facility] | | | and [place] | + + + | Organization | [facility] | | | and [place] | + + + | Address | Unknown | + + + | Phone | Unavailable | + + + Support + + + + + | Name | Relationship | Address | Phone | + + + + + | Pam Argueta | ECON | [place], [place] | | | | | [address] | | + + + + + | Marshall Argueta | ECON | Unknown | | + + + + + Care Team Providers + +------+ + | Care Transportation Supervisor Name | Role | Phone | + +------+ + | No, Physician | PCP | Unavailable | + +------+ + Reason for Visit + + + | Reason | Comments | + + + | Vaginal Bleeding | | + + + Encounter Details +--------+ + + + + | Date | Type | Department | Care Team | Description | +--------+ + + + + | 01/28/ | Emergency | [facility] | Bill Miranda, | Threatened | | 2019 | | [facility] | MD [address] | miscarriage (Primary | | | | CENTER [address] | [place] | Dx) | | | | [place] | [address] | | | | | [address] | | | | | | [phone] | | | +--------+ + + + [...] + + + | Blood Pressure | 130/75 | 01/28/2019 1:36 PM | | | | | PDT | | + + + + + | Pulse | 83 | 01/28/2019 1:36 PM | | | | | PDT | | + + + + + | Temperature | 36.8 C (98.2 F) | 01/28/2019 1:36 PM | | | | | PDT | | + + + + + | Respiratory Rate | 14 | 01/28/2019 1:36 PM | | | | | PDT | | + + + + + | Oxygen Saturation | 98% | 01/28/2019 1:36 PM | | | | | PDT | | + + + + + | Inhaled Oxygen | - | - | | | Concentration | | | | + + + + + | Weight | 110.7 kg (244 lb) | 01/28/2019 1:36 PM | | | | | PDT | | + + + + + | Height | 167.6 cm (5' 6") | 01/28/2019 1:36 PM | | | | | PDT | | + + + + + | Body Mass Index | 39.38 | 01/28/2019 1:36 PM | | | | | PDT | | + + + + + documented in this encounter Discharge Instructions Instructions Bill Miranda MD - 01/28/2019Repeat hCG in 72 hours. AttachmentsThe following attachments cannot be sent through Care Everywhere.Possible Miscar tom (Threatened ) (Surinamese)documented in this encounter Medications at Time of [...] | 3 | 07/12/20 | | | (MAXALT-CT TECHNICIAN) 10 mg | mouth as needed for [...] | + +--------+ + + + | US OB < 14 WEEKS W | STAT | 01/28/2019 | | Results for this | | TRANSVAGINAL | | 2:55 PM | | procedure are in the | | | | PDT | | results section. | + +--------+ + + + | ABO RH | STAT | 01/28/2019 | | Results for this | | | | 1:52 PM | | procedure are in the | | | | PDT | | results section. | + +--------+ + + + | CBC WITH | STAT | 01/28/2019 | | Results for this | | DIFFERENTIAL | | 1:52 PM | | procedure are in the | | | | PDT | | results section. | + +--------+ + + + | HCG, SERUM, QUANT | STAT | 01/28/2019 | | Results for this | | | | 1:52 PM | | procedure are in the | | | | PDT | | results section. | + +--------+ + + + | POCT TEST, | STAT | 01/28/2019 | | Results for this | | URINE, QUAL | | 1:37 PM | | procedure are in the | | | | PDT | | results section. | + +--------+ + + + | URINALYSIS WITH | Routin | 01/28/2019 | | Results for this | | MICROSCOPIC | e | 1:36 PM | | procedure are in the | | | | PDT | | results section. | + +--------+ + + + documented in this encounter Results US OB < 14 Weeks W Transvaginal (01/28/2019 2:55 PM PDT) + + | Specimen | + + | | + + + + + | Narrative | Performed At | + + + | US OB < 14 WEEKS W TRANSVAGINAL 01/28/2019 2:11 PM HISTORY: | [facility] | | VAGINAL BLEEDING. COMPARISON: None. PROTOCOL: Schwartz scale and | | | Doppler images of the fetus with transabdominal and transvaginal | | | imaging. FINDINGS: The LMP was 12/06/2018. Gestational age by | | | dates is 7 weeks 4 days. Endometrium is slightly heterogeneous and | | | borderline thickened measuring up to 1.3 cm. Uterus: No | | | gestational sac identified. The uterus measures 8.7 cm. Right | | | ovary: Parenchyma is normal. The ovary measures 2.8 x 1.6 x 2.8 cm. | | | Left ovary: Parenchyma is normal. The ovary measures 2.6 x 1.5 x | | | 2.6 cm. Adnexa: Normal Cul-de-sac: Minimal fluid is seen in | | | the cul-de-sac. IMPRESSION - Intrauterine is NOT | | | identified on today's imaging. Slightly heterogeneous and | | | thickened appearance of the endometrium. Findings may represent | | | missed . No convincing products of conception identified. | | | Recommend repeat imaging in early remains within the | | | differential. Dictated and Signed by: Bryan Vizcaino MD | | | Electronically signed: 01/28/2019 3:47 PM | | + + + + + | Procedure Note | + + | Blaze, Rad Results In - 01/28/2019 3:50 PM PDT US OB < 14 WEEKS W TRANSVAGINAL | | 01/28/2019 2:11 PMHISTORY: VAGINAL BLEEDING.COMPARISON: None.PROTOCOL: Schwartz scale and | | Doppler images of the fetus with transabdominal andtransvaginal imaging.FINDINGS:The LMP | | was 12/06/2018. Gestational age by dates is 7 weeks 4 days. Endometriumis slightly | | heterogeneous and borderline thickened measuring up to 1.3 cm. Uterus: No gestational | | sac identified. The uterus measures 8.7 cm.Right ovary: Parenchyma is normal. The ovary | | measures 2.8 x 1.6 x 2.8 cm. Left ovary: Parenchyma is normal. The ovary measures 2.6 x | | 1.5 x 2.6 cm. Adnexa: [id number]-[id number]: Minimal fluid is seen in the | | cul-de-sac.IMPRESSION -Intrauterine is NOT identified on today's | | imaging.Slightly heterogeneous and thickened appearance of the endometrium. Findings | | mayrepresent missed . No convincing products of conception identified.Recommend | | repeat imaging in early remains within the differential.Dictated and Signed | | by: Bryan Vizcaino MD Electronically signed: 01/28/2019 3:47 PM | |Uterus: No gestational sac identified. The uterus measures 8.7 cm. | | | |Right ovary: Parenchyma is normal. The ovary measures 2.8 x 1.6 x 2.8 cm. | | | |Left ovary: Parenchyma is normal. The ovary measures 2.6 x 1.5 x 2.6 cm. | | | |Adnexa: Normal | | | |Cul-de-sac: Minimal fluid is seen in the cul-de-sac. | | | |IMPRESSION - | |Intrauterine is NOT identified on today's imaging. | | | |Slightly heterogeneous and thickened appearance of the endometrium. Findings may | |represent missed . No convincing products of conception identified. | | | |Recommend repeat imaging in early remains within the differential. | | | |Dictated and Signed by: Bryan Vizcaino MD | | Electronically signed: 01/28/2019 3:47 PM | + + + +---------+ + + | Performing | Address | City/State/Zipcode | Phone Number | | Organization | | | | + +---------+ + + | [facility] | | | | + +---------+ + + HCG, Serum, Quant (01/28/2019 1:52 PM PDT) + +---------+ + + + | Component | Value | Ref Range | Performed | Pathologist | | | | | At | Signature | + +---------+ + + + | hCG Quant, | 795 (H) | 2 - 4 mIU/mL | [facility] | | | Serum | | | [facility] | | | | | | MEDICAL | | | | | | CENTER - | | | | | | LABORATORY | | + +---------+ + + + + + | Specimen | + + | Blood | + + + + + + + | Performing | Address | City/State/Zipcode | Phone Number | | Organization | | | | + + + + + | [facility] | [address] | [place] | [phone] | | [facility] | | [address] | | | - LABORATORY | | | | + + + + + ABO Rh (01/28/2019 1:52 PM PDT) + + + + + + | Component | Value | Ref Range | Performed | Pathologist | | | | | At | Signature | + + + + + + | ABO | O | | [facility] | | | [facility] | | | | | [facility] | | | | | | CENTER - | | | | | | BLOOD BANK | | + + + + + + | Rh Type | Positive | | [facility] | | | | | | [facility] | | | | | | [facility] | | | | | | CENTER - | | | | | | BLOOD BANK | | + + + + + + + + | Specimen | + + | Blood | + + + + + + + | Performing | Address | City/State/Zipcode | Phone Number | | Organization | | | | + + + + + | [facility] | [address] | [place] | | | [facility] | | [address] | | | - BLOOD BANK | | | | + + + + + CBC with Differential (01/28/2019 1:52 PM PDT) + + + + + + | Component | Value | Ref Range | Performed | Pathologist | | | | | At | Signature | + + + + + + | WBC | 10.4 | 4.0 - 11.0 K/uL | [facility] | | | | | | [facility] | | | | | | MEDICAL | | | | | | CENTER - | | | | | | LABORATORY | | + + + + + + | RBC | 4.42 | 3.70 - 5.20 | [facility] | | | | | M/uL | [facility] | | | | | | MEDICAL | | | | | | CENTER - | | | | | | LABORATORY | | + + + + + + | Hemoglobin | 13.1 | 11.5 - 16.0 | [facility] | | | | | g/dL | [facility] | | | | | | MEDICAL | | | | | | CENTER - | | | | | | LABORATORY | | + + + + + + | Hematocrit | 40.2 | 34.0 - 47.0 % | [facility] | | | | | | [facility] | | | | | | MEDICAL | | | | | | CENTER - | | | | | | LABORATORY | | + + + + + + | MCV | 91.0 | 83.0 - 101.0 fL | [facility] | | | | | | [facility] | | | | | | MEDICAL | | | | | | CENTER - | | | | | | LABORATORY | | + + + + + + | MCH | 29.6 | 28.0 - 35.0 pg | [facility] | | | | | | [facility] | | | | | | MEDICAL | | | | | | CENTER - | | | | | | LABORATORY | | + + + + + + | MCHC | 32.6 | 32.0 - 36.0 | [facility] | | | | | g/dL | [facility] | | | | | | MEDICAL | | | | | | CENTER - | | | | | | LABORATORY | | + + + + + + | RDW-CV | 13.2 | <15.0 % | [facility] | | | | | | [facility] | | | | | | MEDICAL | | | | | | CENTER - | | | | | | LABORATORY | | + + + + + + | RDW-SD | 43.8 | 35.1 - 46.3 fL | [facility] | | | | | | [facility] | | | | | | MEDICAL | | | | | | CENTER - | | | | | | LABORATORY | | + + + + + + | Platelet | 408 | 140 - 440 K/uL | [facility] [...] + + + + | % | 65.7 | 45.0 - 82.0 % | [facility] | | | Neutrophils | | | [facility] | | | | | | MEDICAL | | | | | | CENTER - | | | | | | LABORATORY | | + + + + + + | % | 24.4 | 20.0 - 45.0 % | [facility] | | | Lymphocytes | | | [facility] | | | | | | MEDICAL | | | | | | CENTER - | | | | | | LABORATORY | | + + + + + + | % Monocytes | 5.3 | 4.0 - 12.0 % | [facility] | | | | | | [facility] | | | | | | MEDICAL | | | | | | CENTER - | | | | | | LABORATORY | | + + + + + + | % | 3.0 | 0.0 - 5.0 % | [facility] | | | Eosinophils | | | [facility] | | | | | | MEDICAL | | | | | | CENTER - | | | | | | LABORATORY | | + + + + + + | % Basophils | 1.1 (H) | 0.0 - 1.0 % | [facility] [...] | Preliminary studies have | | [facility] | | | s | indicated the IG% | | MEDICAL | | | | and/or IG# show promise | | CENTER - | | | | as an early screen for | | LABORATORY | | | | infection. For | | | | | | patients, use the | | | | | | special reference ranges | | | | | | listed below. | | | | + + + + + + | Absolute | 6.87 | 1.80 - 8.50 | [facility] | | | Neutrophils | | K/uL | [facility] | | | | | | MEDICAL | | | | | | CENTER - | | | | | | LABORATORY | | + + + + + + | Absolute | 2.54 | 0.60 - 3.20 | [facility] | | | Lymphocytes | | K/uL | [facility] | | | | | | MEDICAL | | | | | | CENTER - | | | | | | LABORATORY | | + + + + + + | Absolute | 0.55 | 0.00 - 1.00 | [facility] | | | Monocytes | | K/uL | [facility] | | | | | | MEDICAL | | | | | | CENTER - | | | | | | LABORATORY | | + + + + + + | Absolute | 0.31 | 0.00 - 0.40 | [facility] | | | Eosinophils | | K/uL | [facility] | | | | | | MEDICAL | | | | | | CENTER - | | | | | | LABORATORY | | + + + + + + | Absolute | 0.11 (H) | 0.00 - 0.10 | [facility] | | | Basophils | | K/uL | [facility] | | | | | | MEDICAL | | | | | | CENTER - | | | | | | LABORATORY | | + + + + + + | Absolute | 0.05 (H)Comment: For | 0.00 - 0.03 | [facility] | | | Immature | patients, use | K/uL | [facility] | | | Granulocyte | the special [...] | nRBC | | K/uL | [facility] | [...] ranges: Trim. Absolute (K/uL) Percentage (%) | [facility] | | 1st 0.003-0.091 K/uL 0.0-0.9% 2nd 0.007-0.247 K/uL [facility] | | 0.1-2.0% 3rd 0.018-0.456 K/uL 0.1-2.0% | - LABORATORY | + + + + + + + + | Performing | Address | City/State[facility] | Phone Number | | Organization | | | | + + + + + | [facility] | [address] | [place] | [phone] | | [facility] | | [address] | | | - LABORATORY | | | | + + + + + POCT Test, Urine, QUAL (01/28/2019 1:37 PM PDT) + + + + + + | Component | Value | Ref Range | Performed | Pathologist | | | | | At | Signature | + + + + + + | | Positive (A) | Negative | | | | Test, | | | | | | Urine, POC | | | | | + + + + + + | Internal QC | Acceptable | Acceptable | | | + + + + + + | Specific | | 1.010, 1.015, | | | | [place], | | 1.020, 1.025 | | | | POC | | | | | + + + + + + | Lot Number | [id number] | | | | + + + + + + | Expiration | 03/04/2020 | | | | | Date | | | | | + + + + + + + + | Specimen | + + | Urine | + + Urinalysis With Microscopic (01/28/2019 1:36 PM PDT) + + + + + + | Component | Value | Ref Range | Performed | Pathologist | | | | | At | Signature | + + + + + + | Color | Yellow | Light Yellow, | [facility] | | | | | Yellow, Straw | [facility] | | | | | | MEDICAL | | | | | | CENTER - | | | | | | LABORATORY | | + + + + + + | Clarity | Hazy (A) | Clear | [facility] | | | | | | [facility] | | | | | | MEDICAL | | | | | | CENTER - | | | | | | LABORATORY | | + + + + + + | pH, Urine | 6.0 | 5.0 - 8.0 | [facility] | | | | | | [facility] | | | | | | MEDICAL | | | | | | CENTER - | | | | | | LABORATORY | | + + + + + + | Specific | 1.015 | 1.001 - 1.030 | [facility] | | | [place] | | | [facility] | | [...] + + + + | Blood, | Large (A) | Negative | [facility] | | [...] + + + + | Ketones, | Trace (A) | Negative | [facility] [...] + + + + | Leukocyte | Small (A) | Negative | [facility] | | [...] (A) | 0 - 2 /HPF | [facility] | | | | | | [facility] | | | | | | MEDICAL | | | | | | CENTER - | | | | | | LABORATORY | | + + + + + + | RBC UA | 25-50 (A) | 0 - 2 /HPF | [facility] | | | | | | [facility] | | | | | | MEDICAL | | | | | | CENTER - | | | | | | LABORATORY | | + + + + + + | SQUAMOUS | 25-50 (A) | 0 - 2 /LPF | [facility] | | | EPITHELIAL | | | [facility] | | | UA | | | MEDICAL | | | | | | CENTER - | | | | | | LABORATORY | | + + + + + + | RENAL | 0-2 | 0 - 2 /HPF | [facility] | | | EPITHELIAL | | | [facility] | | | UA | | | MEDICAL | | | | | | CENTER - | | | | | | LABORATORY | | + + + + + + | BACTERIA UA | Negative | Negative /HPF | [facility] | | | | | | [facility] | | | | | | MEDICAL | | | | | | CENTER - | | | | | | LABORATORY | | + + + + + + | MUCUS UA | Present (A) | Negative /LPF | [facility] | | | | | | [facility] | | | | | | MEDICAL | | | | | | CENTER - | | | | | | LABORATORY | | + + + + + + | HYALINE | 0-2 | 0 - 2 /LPF | [facility] | | | CASTS UA | | | [facility] | | [...] + + | [facility] | [address] | [place] | [phone] | | [facility] | | [address] | | | - LABORATORY | | | | + + + + + documented in this encounter Visit Diagnoses + + | Diagnosis | + + | Threatened miscarriage - Primary Threatened , unspecified as to episode of | | care | + + documented in this encounter
--- OUTSIDE RECORDS SUMMARY | ~2019-09-21 | XMS | Encounter Summary ---
Demographics + + + | Address | [address] | | | [place] [address] | + + + | Home Phone | | + + + | Preferred Language | Unknown | + + + | Marital Status | Single | + + + | Gnosticist Affiliation | Unknown | + + + | Race | Unknown | + + + | Ethnic Group | Unknown | + + + Author + + + | Author | [facility] | | | and [place] | + + + | Organization | [facility] | | | and [place] | + + + | Address | Unknown | + + + | Phone | Unavailable | + + + Support + + + + + | Name | Relationship | Address | Phone | + + + + + | Pam Argueta | ECON | [place], [place] | | | | | [address] | | + + + + + | Marshall Argueta | ECON | Unknown | | + + + + + Care Team Providers + +------+ + | Care Hook Up Name | Role | Phone | + [...] + + | 01/28/ | Emergency | [facility] | Bill Miranda, | Threatened | | 2019 | | [facility] | MD [address] | miscarriage (Primary | | | | CENTER [address] | [place] | Dx) | | | | [place] | [address] | | | | | [address] | | | | | | [phone] | | | +--------+ + + + [...] through Care Everywhere.Possible Miscar tom (Threatened ) (Kazakh)documented in this encounter Medications at Time of [...] | 3 | 07/12/20 | | | (MAXALT-TUGBOAT DISPATCHER) 10 mg | mouth as needed for [...] | | 1.5 x 2.6 cm. Adnexa: [id number]: Minimal fluid is seen in the | [...] [address] | [place] | [phone] | | [facility] | | [address] | | | - LABORATORY | | [...] St | [place] | | | [facility] | | [address] | | | - BLOOD BANK | [...] 1st 0.003-0.091 K/uL 0.0-0.9% 2nd 0.007-0.247 K/uL [facility] | | 0.1-2.0% 3rd 0.018-0.456 K/uL 0.1-2.0% | - LABORATORY | + + + + + + + + | Performing | Address | City/State[facility] | Phone Number | | Organization | | | | + + + + + | [facility] | [address] | [place] | [phone] | | [facility] | | [address] | | | - LABORATORY | | [...] | 1.010, 1.015, | | | | [place], | | 1.020, 1.025 | | | | POC | | | | | + + + + + + | Lot Number | [id number] | | | | + + + [...] - 1.030 | [facility] | | | [place] | | | [facility] | | [...] [address] | [place] | [phone] | | [facility] | | [address] | | | - LABORATORY | | | | + + + + + documented in this encounter Visit Diagnoses + + | Diagnosis | + + | Threatened miscarriage - Primary Threatened , unspecified as to episode of | | care | + + documented in this encounter
--- OUTSIDE RECORDS SUMMARY | ~2019-09-21 | XMS | Encounter Summary ---
Demographics + + + | Address | [address] | | | [place] [address] | + + + | Home Phone | | + + + | Preferred Language | Unknown | + + + | Marital Status | Single | + + + | Advent Affiliation | Unknown | + + + | Race | Unknown | + + + | Ethnic Group | Unknown | + + + Author + + + | Author | [facility] | | | and [place] | + + + | Organization | [facility] | | | and [place] | + + + | Address | Unknown | + + + | Phone | Unavailable | + + + Support + + + + + | Name | Relationship | Address | Phone | + + + + + | Pam Argueta | ECON | [place] | | | | | [address] | | + + + + + | Marshall Argueta | ECON | Unknown | | + + + + + Care Team Providers + +------+ + | Care Prefabricated Houses Trimmer Name | Role | Phone | + +------+ + | No, Physician | PCP | Unavailable | + +------+ + Reason for Referral Diagnostic/Screening (Routine) +--------+--------+ + + + + | Status | Reason | Specialty | Diagnoses / | Referred By | Referred To | | | | | Procedures | Contact | Contact | +--------+--------+ + + + + | Closed | | Radiology | Diagnoses | [facility] | CHAVEZ | | | | | Migraines | Ranjan Gordon, | AKOSUA | | | | | Procedures | MD Contreras | MEDICAL | | | | | MRI Brain w | updated | [address] | | | | | [address] | address | [address] | | | | | | | [place], [place] | | | | | | | [address] | | | | | | | Phone: | | | | | | | [phone] | | | | | | | Fax: | | | | | | | [phone] | +--------+--------+ + + + + Reason for Visit + + + | Reason | Comments | + + + | New Patient | migraines | + + + Evaluate & Treat (Routine) +--------+--------+ + + + + | Status | Reason | Specialty | Diagnoses / | Referred By | Referred To | | | | | Procedures | Contact | Contact | +--------+--------+ + + + + | Closed | | Neurology | Diagnoses | Cole, | Pascual, | | | | | Migraine | Stefanie Barger, | Ranjan Gordon MD | | | | | | PA-C [address] | | | | | | [address] | updated | | | | | | [facility] | address | | | | | | [facility] [address] | | | | | | | [place], | | | | | | | [place] | | | | | | | [address] | | | | | | | Phone: | | | | | | | [phone] | | | | | | | Fax: | | | | | | | [phone] | | +--------+--------+ + + + + Encounter Details +--------+---------+ + + + | Date | Type | Department | Care Team | Description | +--------+---------+ + + + | 07/12/ | Office | [facility] [place] | Ranjan Garner | Migraines (Primary | | 2013 | Visit | NEUROLOGY JULIO CÉSAR Gordon MD Need updated | Dx); Dizziness | | | | [address] [facility], | address | | | | | [address] [place] | | | | | | [place] [address] | | | | | | [phone] | | | +--------+---------+ + + + [...] + + + | Blood Pressure | 100/68 | 07/12/2014 11:01 AM | | | | | PDT | | + + + + + | Pulse | 76 | 07/12/2014 11:01 AM | | | | | PDT | | + + + + + | Temperature | - | - | | + + + + + | Respiratory Rate | 18 | 07/12/2014 11:01 AM | | | | | PDT | | + + + + + | Oxygen Saturation | - | - | | + + + + + | Inhaled Oxygen | - | - | | | Concentration | | | | + + + + + | Weight | 90.7 kg (200 lb) | 07/12/2014 11:01 AM | | | | | PDT | | + + + + + | Height | 167.6 cm (5' 6") | 07/12/2014 11:01 AM | | | | | PDT | | + + + + + | Body Mass Index | 32.28 | 07/12/2014 11:01 AM | | | | | PDT | | + + + + + documented in this encounter Patient Instructions Patient Instructions Ranjan Garner MD - 07/12/2014 11:36 AM PDT1) MRI brain 2) Maxalt and Reglan when a headache starts 3) Start taking Butterbur daily 4) Return to neurology clinic in 1 month Patient Education Rizatriptan Benzoate Oral disintegrating tablet Rizatriptan Benzoate Oral tablet Rizatriptan Benzoate Oral tablet What is this medicine? RIZATRIPTAN (rye za TRIP argueta) is used to treat migraines with or without aura. An aura is a strange feeling or visual disturbance that warns you of an attack. It is not used to preven t migraines. This medicine may be used for other purposes; ask your health care provider or pharmacist i f you have questions. What should I tell my health care provider before I take this medicine? They need to know if you have any of these conditions: bowel disease or colitis diabetes family history of heart disease fast or irregular heart beat heart or blood vessel disease, angina (chest pain), or previous heart attack high blood pressure high cholesterol history of stroke, transient ischemic attacks (TIAs or mini-strokes), or intracranial bl eeding kidney or liver disease overweight poor circulation postmenopausal or surgical removal of uterus and ovaries Raynaud's disease seizure disorder an unusual or allergic reaction to rizatriptan, other medicines, foods, dyes, or preserv atives or trying to get breast-feeding How should I use this medicine? This medicine is taken by mouth with a glass of water. Follow the directions on the prescri ption label. This medicine is taken at the first symptoms of a migraine. It is not for every day use. If your migraine headache returns after one dose, you can take another dose as dire cted. You must leave at least 2 hours between doses, and do not take more than 30 mg total i n 24 hours. If there is no improvement at all after the first dose, do not take a second dos e without talking to your doctor or health menagerie caretaker. Do not take your medicine more often than directed. Talk to your pasteuriser operator regarding the use of this medicine in children. While this drug m ay be prescribed for children as young as 6 years for selected conditions, precautions do ap ply. Overdosage: If you think you have taken too much of this medicine contact a poison control center or emergency room at once. NOTE: This medicine is only for you. Do not share this medicine with others. What if I miss a dose? This does not apply; this medicine is not for regular use. What may interact with this medicine? Do not take this medicine with any of the following medicines: amphetamine, dextroamphetamine or cocaine dihydroergotamine, ergotamine, ergoloid mesylates, methysergide, or ergot-type medicatio n - do not take within 24 hours of taking rizatriptan feverfew MAOIs like Carbex, Eldepryl, Marplan, Nardil, and Parnate - do not take rizatriptan with in 2 weeks of stopping MAOI therapy. other migraine medicines like almotriptan, eletriptan, naratriptan, sumatriptan, zolmitr iptan - do not take within 24 hours of taking rizatriptan tryptophan This medicine may also interact with the following medications: medicines for mental depression, anxiety or mood problems propranolol This list may not describe all possible interactions. Give your health care provider a list of all the medicines, herbs, non-prescription drugs, or dietary supplements you use. Also t ell them if you smoke, drink alcohol, or use illegal drugs. Some items may interact with you r medicine. What should I watch for while using this medicine? Only take this medicine for a migraine headache. Take it if you get warning symptoms or at the start of a migraine attack. It is not for regular use to prevent migraine attacks. You may get drowsy or dizzy. Do not drive, use machinery, or do anything that needs mental alertness until you know how this medicine affects you. To reduce dizzy or fainting spells, do not sit or stand up quickly, especially if you are an older patient. Alcohol can increase drowsiness, dizziness and flushing. Avoid alcoholic drinks. Smoking cigarettes may increase the risk of heart-related side effects from using this medi cine. What side effects may I notice from receiving this medicine? Side effects that you should report to your doctor or health menagerie caretaker as soon as p ossible: allergic reactions like skin rash, itching or hives, swelling of the face, lips, or tong ue changes in vision chest, jaw, neck, or throat pain, tightness, or pressure confusion, trouble speaking or understanding fast, slow, or irregular heart beat increased or decreased blood pressure pain, tingling, numbness in the hands or feet redness, blistering, peeling or loosening of the skin, including inside the mouth seizures severe headaches severe stomach pain and cramping, bloody diarrhea shortness of breath, wheezing, or difficulty breathing sudden numbness or weakness of the face, arm, or leg trouble walking, dizziness, loss of balance or coordination Side effects that usually do not require medical attention (report to your doctor or health menagerie caretaker if they continue or are bothersome): dizziness drowsiness dry mouth facial flushing muscle pain or cramps nausea, vomiting weak or tired This list may not describe all possible side effects. Call your doctor for medical advice a bout side effects. You may report side effects to FDA at 3-623-MMY-9504. Where should I keep my medicine? Keep out of the reach of children. Store at room temperature between 15 and 30 degrees C (59 and 86 degrees F). Keep container tightly closed. Throw away any unused medicine after the expiration date. NOTE:This sheet is a summary. It may not cover all possible information. If you have questi ons about this medicine, talk to your doctor, pharmacist, or health care provider. Copyright 2014 Gold Standard documented in this encounter Progress Notes Ranjan Garner MD - 07/12/2014 10:59 AM PDTFormatting of this note might be differen t from the original. Ranjan Garner MD [address] [facility], [address] [place] [address] Neurology Outpatient New Patient Note Referring Provider: EUSEBIA Wright [place] Chief Complaint: Chief Complaint Patient presents with New Patient migraines History of Present Illness: Catarina Argueta is a 23 y.o. female with a pertinent history of anxiety, depression an d migraine headaches who presents with worsening headache frequency. Ms. Argueta has been struggling with migraines since adolescence. A headache is pressure li ke, retro-orbital associated with photophobia and nausea. Ms. Argueta gets an aura of tunnel vision before a headache hits. A headache will be severe, and can last 1-2 days. She recent ly had a 2 week period where the headache waxed and waned, but never went away completely. S he is not sure what triggers a headache. They do not correlate with her menses, and occur on ce per month. Ms. Argueta also has independent dizzy spells, where the room spins for several seconds. Af ter this, she can sometimes feel unsteady on her feet for the rest of the day. Dizziness can not be precipitated by head turn or position change. Ms. Argueta denies focal neurologic def icits during either the dizziness or a headache. These episodes occur 1-2 times per month. Ms. Argueta has tried Imitrex and most over the counter headache remedies, which haven't he lped. When she feels a headache coming on, she needs to be driven to her local clinic and re ceive an antinausea injection, and a pain relief injection (thinks its Toradol). This helps with the pain, and allows her to "sleep it off". She has tried Zofran and Phenergan at home, which don't help with nausea. Past Medical History: Past Medical History Diagnosis Date Anxiety Asthma Depression Kidney stones Migraine Past Surgical History: Past Surgical History Procedure Date [place] tooth extraction 2006 Current Medications: Current Medications acyclovir (ZOVIRAX) 200 mg capsule (Taking) Take 200 mg by mouth 2 times daily. amoxicillin (AMOXIL) 250 mg capsule (Taking) Take 250 mg by mouth 2 times daily. etonogestrel-ethinyl estradiol (NUVARING) 0.12-0.015 MG/24HR vaginal ring (Taking) Place 1 each vaginally See Admin Instructions. Insert vaginally and leave in place for 3 consecuti ve weeks, then remove for 1 week. fluticasone (FLONASE) 50 mcg/nasal spray (Taking) 1 spray by Nasal route Daily. Loratadine (CLARITIN) 10 MG CAPS (Taking) Take 1 capsule by mouth Daily. traMADol (ULTRAM) 50 mg tablet (Taking) Take 50 mg by mouth as needed. 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 EYES: + eye problems, + use of corrective lenses, no eye injury, no double vision, no blin dness. EARS, NOSE, AND THROAT: No changes in taste or smell, no hearing difficulty, no ringing in the ears, no ear drainage, + dizziness, no voice changes, no difficulty swallowing, no sign ificant snoring, no sleep apnea, no sinus problems, no major dental work. NEUROLOGICALLY: Please see the review of systems discussed above in the history of present illness. In addition, the patient has fainting spells, headaches, migraines. PSYCHIATRIC: No depression, no sleep disorders, no anxiety, no bipolar disorder, no psycho tic episodes. CARDIOVASCULAR: No heart attacks, no heart murmur, no heart fluttering, no chest pain, no ankle swelling. LUNG DISEASE: No shortness of breath, no cough, no tuberculosis, no bloody cough, + asthm a, no emphysema/COPD. GASTROINTESTINAL: No bowel disease, + nausea or vomiting, no rectal bleeding, no constipat ion, no stool incontinence, no liver disease, no [...] joint arthritis, no rheumatoid arthritis. Examination: BP 100/68 | Pulse 76 | Resp 18 | Ht 1.676 m (5' 6") | Wt 90.719 kg (200 lb) | BMI 32.30 kg/ m2 | LMP 06/23/2014 | ? No Neck Circumference: 14.5" [place] Sleepiness Scale: 4 General: well developed and well nourished HEENT: ophthalmologic examination: normal w/o hemorrhages, exudates, or papilledema, sclera clear, anicteric and oropharynx clear, no lesions. Cardiovascular: regular rate and rhythm, no murmurs Respiratory: clear to auscultation, no wheezes or rales and unlabored breathing Abdominal: abdomen is soft without significant tenderness, masses, organomegaly or guarding . Extremities: peripheral pulses normal, no pedal edema, no clubbing or cyanosis Neurologic: Mental Status: alert, oriented to person, place, and time, attention is intact, Intact imm ediate, short-term, and remote memory, speech is fluent, Normal fund of knowledge Cranial Nerves: cranial nerves II-XII are intact Motor: normal 5/5 strength in all tested muscle groups, no muscle wasting or atrophy, no fa sciculations noted, no involuntary movements, no abnormalities of position, normal resting m uscle tone and no pronator drift Sensation: normal light touch, normal temperature and normal vibration Reflexes: reflexes are uniformly hyperreflexic Plantar responses downgoing Coordination/Cerebellar: finger to nose, heel to harper, rapid alternating movements normal Gait: normal - intact heel, toe and tandem walking. Romberg test negative Radiographic Review: No pertinent imaging. Laboratory Review: None Assessment: Catarina Argueta is a 23 y.o. female with a history of anxiety, depression and migraine headaches who presents with worsening headache frequency. 1) Headaches: likely migrainous in nature given aura and associated symptoms. 2) Dizziness: this may either be a migraine variant or BPPV. Plan: 1) Headaches/Dizziness - MRI brain with and without contrast - Headache diary - Maxalt orally dissolving tab at start of migraine - Reglan up to 10 mg at start of migraine - Butterbur for migraine prophylaxis - If headache or dizziness frequency increases, we will consider a prophylactic medication 2) Return to neurology clinic in 1 month I spent 1 hour in visit with Catarina Argueta today with the majority of time spent cou nselling the patient on her diagnosis, options for her care, and coordinating her care. Electronically signed by: Ranjan Garner MD, 07/12/2014 11:10 documented in this encounter Plan of Treatment + +---------+--------+ + + | Name | Type | Priori | Associated Diagnoses | Order Schedule | | | | ty | | | + +---------+--------+ + + | MRI Brain w wo | Imaging | Routin | Migraines | Expected: | | Contrast | | e | | 07/12/2014, Expires: | | | | | | 07/12/2015 | + +---------+--------+ + + documented as of this encounter Visit Diagnoses + + | Diagnosis | + + | Migraines - Primary Migraine, unspecified, without mention of intractable migraine | | without mention of status migrainosus | + + | Dizziness Dizziness and giddiness | + + documented in this encounter
--- OUTSIDE RECORDS SUMMARY | ~2019-09-21 | XMS | Encounter Summary ---
Demographics + + + | Address | [address] | | | [place] [address] | + + + | Home Phone | | + + + | Preferred Language | Unknown | + + + | Marital Status | Single | + + + | Shinto Affiliation | Unknown | + + + | Race | Unknown | + + + | Ethnic Group | Unknown | + + + Author + + + | Author | [facility] | | | and [place] | + + + | Organization | [facility] | | | and [place] | + + + | Address | Unknown | + + + | Phone | Unavailable | + + + Support + + + + + | Name | Relationship | Address | Phone | + + + + + | Pam Argueta | ECON | [place] | | | | | [address] | | + + + + + | Marshall Argueta | ECON | Unknown | | + + + + + Care Team Providers + +------+ + | Care Supervisor International Reservations Name | Role | Phone | + +------+ + | No, Physician | PCP | Unavailable | + +------+ + Reason for Visit + + + | Reason | Comments | + + + | Follow-up | migraines | + + + Encounter Details +--------+---------+ + + + | Date | Type | Department | Care Team | Description | +--------+---------+ + + + | 10/15/ | Office | [facility] | Ranjan Garner | Migraine without | | 2013 | Visit | NEUROLOGY JULIO CÉSAR | MD Evan Need updated | aura and without | | | | [facility], | address | status migrainosus, | | | | [address] [place] | | not intractable | | | | [place] [address] | | (Primary Dx) | | | | [phone] | | | +--------+---------+ + + + [...] + + + | Blood Pressure | 113/69 | 10/15/2014 1:24 PM | | | | | PST | | + + + + + | Pulse | 73 | 10/15/2014 1:24 PM | | | | | PST | | + + + + + | Temperature | - | - | | + + + + + | Respiratory Rate | 14 | 10/15/2014 1:24 PM | | | | | PST | | + + + + + | Oxygen Saturation | - | - | | + + + + + | Inhaled Oxygen | - | - | | | Concentration | | | | + + + + + | Weight | 91.4 kg (201 lb 9.6 | 10/15/2014 1:24 PM | | | | oz) | PST | | + + + + + | Height | 167.6 cm (5' 6") | 10/15/2014 1:24 PM | | | | | PST | | + + + + + | Body Mass Index | 32.54 | 10/15/2014 1:24 PM | | | | | PST | | + + + + + documented in this encounter Patient Instructions Patient Instructions Ranjan Garner MD - 10/15/2014 1:52 PM PST1) Return as needed Anatomy of the Brain The brain controls the body. You can move and feel because of the brain. And it is the brai n that makes you able to think, to show emotions, and to make judgments. The brain is protec destiny by the skull, tissue, and fluid. Functions of the Brain The brain s right side controls the left side of the body. And the left side of the brain controls the body s right side. Each section of the brain has specific roles. Some skills and traits occur in more than one section. The main parts of the brain and some of their fu nctions are listed below. Protecting the Brain Beneath its outer covering of tissue (called the dura), the brain is cushioned and supporte d by a special fluid. This cerebrospinal fluid fills the space between the dura and brain. A rteries and veins carry blood to and from the brain. Without a fresh supply of blood, brain tissue quickly dies. [id number] [employer]. [address] [place] [address], [place] [address]. All righ ts reserved. This information is not intended as a substitute for professional medical care. Always follow your healthcare professional's instructions. documented in this encounter Progress Notes Ranjan Garner MD - 10/15/2014 1:32 PM PSTFormatting of this note might be differen t from the original. Ranjan Garner MD [address] [place] [address], [address] [place] [address] Neurology Outpatient ProgressNote Patient ID: Ms. Argueta is a 24 y.o. female with a pertinent history of anxiety, depression and migrai ne headaches, following up in neurology clinic for migraine management. Ms. Argueta was las t seen 08/13/14 Interval History: Since last visit, Ms. Argueta underwent an MRI for evaluation of her headaches, which came back normal. Ms. Argueta continues to be migraine free, really without intervention. She thomas s Reglan on standby should she have a breakthrough migraine. Ms. Argueta has had no further vision changes (had to have glasses prescription adjusted previously). She denies any diplo jung, vision changes when bending over, or new focal neurologic deficits. Ms. Argueta just s tarted a new job, which she is very excited about. Past Medical History: Past Medical History Diagnosis Date Anxiety Asthma Depression Kidney stones Migraine Back injury 09/11/2014 Fell on ice and injured back and hip Current Medications: Current Medications acyclovir (ZOVIRAX) 200 [...] (Taking) 1 spray by Nasal route Daily. HYDROcodone-acetaminophen (NORCO) 5-325 mg per tablet (Taking) Take 5-325 mg by mouth Twi ce daily. Loratadine (CLARITIN) 10 MG CAPS (Taking) Take 1 capsule by mouth Daily. metoclopramide (REGLAN) 5 MG tablet (Taking) Take 2 tablets by mouth Daily as needed. rizatriptan (MAXALT-STRIPE MARKER) 10 mg disintegrating tablet (Taking) Take 1 tablet by mouth as n eeded for Migraine. May repeat in 2 hours if needed traMADol (ULTRAM) 50 mg tablet Take 50 mg by mouth as needed. Allergies: No Known Allergies Social history and family history are otherwise unchanged. ROS: GENERALLY: No fever, no night sweats, no anemia, no fatigue, no recent profound weight ch anges. EYES: No eye problems, + use of [...] present illness. In addition, the patient has back injury, pain in back. PSYCHIATRIC: No depression, no sleep disorders, no anxiety, no bipolar disorder, no psycho tic episodes. CARDIOVASCULAR: No heart attacks, no heart murmur, no heart fluttering, no chest pain, no ankle swelling. LUNG DISEASE: No shortness of breath, no cough, no tuberculosis, no bloody cough, + asthm a, no emphysema/COPD. GASTROINTESTINAL: No bowel disease, no [...] joint arthritis, no rheumatoid arthritis. Examination: BP 113/69 | Pulse 73 | Resp 14 | Ht 1.676 m (5' 6") | Wt 91.445 kg (201 lb 9.6 oz) | BMI 32 .55 kg/m2 | ? No [place] Sleepiness Scale: 6 General: well developed and well nourished HEENT: sclera clear, anicteric and oropharynx clear, no lesions Cardiovascular: regular rate and rhythm, no murmurs Respiratory: clear to auscultation, no wheezes or rales and unlabored breathing Extremities: peripheral pulses normal, no pedal edema, no clubbing or cyanosis Neurologic: Mental Status: alert, oriented to person, place, and time, speech is fluent Cranial Nerves: cranial nerves II-XII are intact Motor: normal 5/5 strength in all tested muscle groups Sensation: normal light touch Coordination/Cerebellar: finger to nose normal Gait: normal Radiographic Review: Imaging was reviewed in detail during the visit. Imaging demonstrates essentially normal br ain. Laboratory Review: None Assessment: Ms. Argueta is a 24 y.o. female with a history of anxiety, depression and migraine headache s, following up in neurology clinic for migraine management. She remains migraine free, with no new complaints or focal neurologic deficits. Plan: 1) Patient may use Reglan as needed if episodic migraine. 2) Discussed initiating Butterbur 100 mg BID if migraines return 3) Return to neurology clinic as needed if migraines return, or new symptoms. I spent 25 minutes in visitation with Catarina Argueta today with the majority of time spent counselling the patient on her diagnosis, options for her care, and coordinating her c are. Electronically signed by: Ranjan Garner MD, 10/15/2014 13:44 documented in th is encounter Plan of Treatment Not on filedocumented as of this encounter Visit Diagnoses + + | Diagnosis | + + | Migraine without aura and without status migrainosus, not intractable - Primary | | Migraine without aura, without mention of intractable migraine without mention of status | | migrainosus | + + documented in this encounter
--- OUTSIDE RECORDS SUMMARY | ~2019-09-21 | XMS | Encounter Summary ---
Demographics + + + | Address | [address] | | | [place] [address] | + + + | Home Phone | | + + + | Preferred Language | Unknown | + + + | Marital Status | Single | + + + | Adventism Affiliation | Unknown | + + + | Race | Unknown | + + + | Ethnic Group | Unknown | + + + Author + + + | Author | [facility] | | | and [place] | + + + | Organization | [facility] | | | and [place] | + + + | Address | Unknown | + + + | Phone | Unavailable | + + + Support + + + + + | Name | Relationship | Address | Phone | + + + + + | Pam Argueta | ECON | [place] | | | | | [address] | | + + + + + | Marshall Argueta | ECON | Unknown | | + + + + + Care Team Providers + +------+ + | Care Linen Supply Load Builder Name | Role | Phone | + +------+ + PCP | Unavailable | + +------+ + Encounter Details +--------+ + + + + | Date | Type | Department | Care Team | Description | +--------+ + + + + | 05/25/ | Hospital | [facility] | | | | 2010 | Encounter | [facility] | | | | | | CENTER [address] | | | | | | [place] | | | | | | [address] | | | | | | [phone] | | | +--------+ + + + + Social History + +-------+ +--------+------+ | Tobacco Use | Types | Packs/Day | Years | Date | | | | | Used | | + +-------+ +--------+------+ | Never Assessed | | | | | + +-------+ +--------+------+ + + + | Sex Assigned at [...] | + +--------+ + + + | URINALYSIS, REFLEX | Routin | 05/25/2011 | | Results for this | | MICROSCOPIC AND/OR | e | 9:20 AM | | procedure are in the | | CULTURE | | PDT | | results section. | + +--------+ + + + documented in this encounter Results Urinalysis, Reflex Microscopic and/or Culture (05/25/2011 9:20 AM PDT) + + + + + + | Component | Value | Ref Range | Performed | Pathologist | | | | | At | Signature | + + + + + + | COLLECTION | CL.CATCH | | [facility] | | | [facility] | | [facility] | | | | | | [facility] | | | | | | CENTER - | | | | | | LABORATORY | | + + + + + + | Color | YELLOW | | [facility] | | | | | | [facility] | | | | | | MEDICAL | | | | | | CENTER - | | | | | | LABORATORY | | + + + + + + | Clarity | HAZY | | [facility] | | | | | | [facility] | | | | | | MEDICAL | | | | | | CENTER - | | | | | | LABORATORY | | + + + + + + | Glucose, | NEGATIVE | NEGATIVE mg/dL | [facility] | | | Urine | | | [facility] | | | | | | MEDICAL | | | | | | CENTER - | | | | | | LABORATORY | | + + + + + + | Bilirubin, | NEGATIVE | NEGATIVE | [facility] | | | Urine | | | [facility] | | | | | | MEDICAL | | | | | | CENTER - | | | | | | LABORATORY | | + + + + + + | Ketones, | NEGATIVE | NEGATIVE | [facility] | | | Urine | | | [facility] | | | | | | MEDICAL | | | | | | CENTER - | | | | | | LABORATORY | | + + + + + + | Specific | 1.025 | 1.001 - 1.030 | [facility] | | | [place] | | | [facility] | | | | | | MEDICAL | | | | | | CENTER - | | | | | | LABORATORY | | + + + + + + | Blood, | LARGE | NEGATIVE | [facility] | | | Urine | | | [facility] | | | | | | MEDICAL | | | | | | CENTER - | | | | | | LABORATORY | | + + + + + + | pH, Urine | 6.5 | 5.0 - 8.0 | [facility] | | | | | | [facility] | | | | | | MEDICAL | | | | | | CENTER - | | | | | | LABORATORY | | + + + + + + | Protein, | >=300 | NEGATIVE mg/dL | [facility] | | | Urine | | | [facility] | | | | | | MEDICAL | | | | | | CENTER - | | | | | | LABORATORY | | + + + + + + | Urobilinoge | NORMAL | NORMAL EU/dL | [facility] | | | n, Urine | | | [facility] | | | | | | MEDICAL | | | | | | CENTER - | | | | | | LABORATORY | | + + + + + + | Nitrite, | NEGATIVE | NEGATIVE | [facility] | | | Urine | | | [facility] | | | | | | MEDICAL | | | | | | CENTER - | | | | | | LABORATORY | | + + + + + + | Leukocyte | NEGATIVE | NEGATIVE | [facility] | | | Esterase, | | | [facility] | | | Urine | | | MEDICAL | | | | | | CENTER - | | | | | | LABORATORY | | + + + + + + | WBC UA | >30 | 0 - 1 /hpf | [facility] | | | | | | [facility] | | | | | | MEDICAL | | | | | | CENTER - | | | | | | LABORATORY | | + + + + + + | RBC UA | 5-10 | 0 - 4 /hpf | [facility] | | | | | | [facility] | | | | | | MEDICAL | | | | | | CENTER - | | | | | | LABORATORY | | + + + + + + | SQUAMOUS | MANY | FEW /hps | [facility] | | | EPITHELIAL | | | [facility] | | | UA | | | MEDICAL | | | | | | CENTER - | | | | | | LABORATORY | | + + + + + + | BACTERIA UA | MODERATE | NONE /hpf | [facility] | | | | | | [facility] | | | | | | MEDICAL | | | | | | CENTER - | | | | | | LABORATORY | | + + + + + + | AMORPHOUS | MODERATE | /hpf | [facility] | | | CRYSTALS | | | [facility] | | | | | | MEDICAL | | | | | | CENTER - | | | | | | LABORATORY | | + + + + + + | Culture | YESComment: REFLEXED TO | | [facility] | | | Indicated | URINE CULTURE. | | [facility] | | | [...] [address] | [place] | [phone] | | [facility] | | [address] | | | - LABORATORY | | | | + + + + + | [address] [address] | [address] | [place], [place] | | | [facility] | | [address] | | | - LABORATORY | | | | + + + + + documented in this encounter Visit Diagnoses Not on filedocumented in this encounter"
--- OUTSIDE RECORDS SUMMARY | ~2019-09-21 | XMS | Clinical Summary ---
Demographics + + + | Address | [address] | | | [place] [address] | + + + | Home Phone | | + + + | Preferred Language | Unknown | + + + | Marital Status | Single | + + + | Pentecostal Affiliation | Unknown | + + + | Race | Unknown | + + + | Ethnic Group | Unknown | + + + Author + + + | Author | [facility] | | | and [place] | + + + | Organization | [facility] | | | and [place] | + + + | Address | Unknown | + + + | Phone | Unavailable | + + + Support + + + + + | Name | Relationship | Address | Phone | + + + + + | Pam Argueta | ECON | [place], [place] | | | | | [address] | | + + + + + | Marshall Argueta | ECON | Unknown | | + + + + + Care Team Providers + +------+ + | Care Weight Inspector Name | Role | Phone | + [...] | 06/25 | | Activ | | (MAXALT-STORY TELLER) 10 mg | mouth as needed for [...] +--------+ +---------+--------+ | BCBS | BCBS | [id number] | 12/24/19 | | | PPO | | | FEDERA | | 19-Pre | | | | | | L FEP | | sent | | | | + +--------+ +--------+ +---------+--------+ | MEDICAID [place] | MEDICA | [id number] | 04/24/20 | [phone] | | Medica | | | [place] | | 18-Pre | 2 | | id | | | PLUS | | sent | | | | + +--------+ +--------+ +---------+--------+ | FOR[facility]LY [facility] | IHS | [id number] | | | | Indemn | | [...] Person | Self | [birth year] | [address] | | | al/Fam | | 1990 | [phone] | [address] [place] | | | jose ramon | | | 9 (Home) | [address] | + +--------+ +--------+ + + Advance Directives + + + + + | Type | Date Recorded | Patient | Explanation | | | | Junior Copywriter | | + + + + + | Power of | | | | | Registered Nurse | | | | + + + + + | Advance | 01/28/2019 2:14 | | | | Directive | PM | | | + + + + +
--- OUTSIDE RECORDS SUMMARY | ~2019-09-21 | XMS | Encounter Summary ---
Demographics + + + | Address | [address] | | | [place] [address] | + + + | Home Phone | | + + + | Preferred Language | Unknown | + + + | Marital Status | Single | + + + | Pentecostalism Affiliation | Unknown | + + + | Race | Unknown | + + + | Ethnic Group | Unknown | + + + Author + + + | Author | [facility] | | | and [place] | + + + | Organization | [facility] | | | and [place] | + + + | Address | Unknown | + + + | Phone | Unavailable | + + + Support + + + + + | Name | Relationship | Address | Phone | + + + + + | Pam Argueta | ECON | [place] | | | | | [address] | | + + + + + | Marshall Argueta | ECON | Unknown | | + + + + + Care Team Providers + +------+ + | Care Replanting Machine Crewman Name | Role | Phone | + [...] | | | | | | [place], [place] | | | | | | | [address] | | | | | | | Phone: | | | | | | | [phone] | | | | | | | Fax: | | | | | | | [phone] | +--------+--------+ + + + + Reason [...] updated | | | | | | [facility] | address | | | | | | [facility] [address] | | | | | | | [place], | | | | | | | [place] | | | | | | | [address] | | | | | | | Phone: | | | | | | | [phone] | | | | | | | Fax: | | | | | | | [phone] | | +--------+--------+ + + + + Encounter Details +--------+---------+ + + + | Date | Type | Department | Care Team | Description | +--------+---------+ + + + | 07/12/ | Office | [facility] | Ranjan Garner | Migraines (Primary | | 2013 | Visit | NEUROLOGY JULIO CÉSAR Gordon MD Need updated | Dx); Dizziness | | | | [address] [facility], | address | | | | | [address] [place] | | | | | | [place] [address] | | | | | | [phone] | | | +--------+---------+ + + + [...] without talking to your doctor or health childcare aide. Do not take your medicine more often than directed. Talk to your wellness manager regarding the use of this medicine in [...] should report to your doctor or health childcare aide as soon as p ossible: allergic reactions [...] attention (report to your doctor or health childcare aide if they continue or are bothersome): dizziness drowsiness dry mouth facial flushing muscle pain or cramps nausea, vomiting weak or tired This list may not describe all possible side effects. Call your doctor for medical advice a bout side effects. You may report side effects to FDA at 7-377-SCW-2854. Where should I keep my medicine? Keep [...] from the original. 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 No Neck Circumference: 14.5" [place] Sleepiness Scale: 4 General: well developed and [...]
--- OUTSIDE RECORDS SUMMARY | ~2019-09-21 | XMS | Encounter Summary ---
Demographics + + + | Address | [address] | | | [place] [address] | + + + | Home Phone | | + + + | Preferred Language | Unknown | + + + | Marital Status | Single | + + + | Buddhism Affiliation | Unknown | + + + | Race | Unknown | + + + | Ethnic Group | Unknown | + + + Author + + + | Author | [facility] | | | and [place] | + + + | Organization | [facility] | | | and [place] | + + + | Address | Unknown | + + + | Phone | Unavailable | + + + Support + + + + + | Name | Relationship | Address | Phone | + + + + + | Pam Argueta | ECON | [place] | | | | | [address] | | + + + + + | Marshall Argueta | ECON | Unknown | | + + + + + Care Team Providers + +------+ + | Care Facilities Clerk Name | Role | Phone | + +------+ + PCP | Unavailable | + +------+ + Encounter Details +--------+ + + + + | Date | Type | Department | Care Team | Description | +--------+ + + + + | 05/25/ | Hospital | [facility] | | | | 2010 | Encounter | [facility] EM[facility] | | | | | | CENTER [address] | | | | | | [place] | | | | | | [address] | | | | | | [phone] | | | +--------+ + + + [...] - [address].030 | [facility] | | | [place] | | | [facility] | | [...] [address] | [place] | [phone] | | [facility] | | [address] | | | - LABORATORY | | | | + + + + + | [facility] | [address] | [place], [place] | | | [facility] | | [address] | | | - LABORATORY | | | | + + + + + documented in this encounter Visit Diagnoses Not on filedocumented in this encounter"
--- OUTSIDE RECORDS SUMMARY | ~2019-09-21 | XMS | Encounter Summary ---
Demographics + + + | Address | [address] | | | [place] [address] | + + + | Home Phone | | + + + | Preferred Language | Unknown | + + + | Marital Status | Single | + + + | Druze Affiliation | Unknown | + + + | Race | Unknown | + + + | Ethnic Group | Unknown | + + + Author + + + | Author | [facility] | | | and [place] | + + + | Organization | [facility] | | | and [place] | + + + | Address | Unknown | + + + | Phone | Unavailable | + + + Support + + + + + | Name | Relationship | Address | Phone | + + + + + | Pam Argueta | ECON | [place] | | | | | [address] | | + + + + + | Marshall Argueta | ECON | Unknown | | + + + + + Care Team Providers + +------+ + | Care Entry Level Automotive Technician Name | Role | Phone | + [...] + + | 10/15/ | Office | [facility] | Ranjan Garner | Migraine without | | 2013 | Visit | NEUROLOGY JULIO CÉSAR | MD Evan Need updated | aura and without | | | | [facility], | address | status migrainosus, | | | | [address] [place] | | not intractable | | | | [place] [address] | | (Primary Dx) | | | | [phone] | | | +--------+---------+ + + + [...] supply of blood, brain tissue quickly dies. [phone] [employer]. [address] [place] [address], [place] [address]. All righ ts reserved. This information is not intended as a substitute for professional medical care. Always follow your healthcare professional's instructions. documented in this encounter Progress Notes Ranjan Garner MD - 10/15/2014 1:32 PM PSTFormatting of this note might be differen t from the original. Ranjan Garner MD [address] [place] [address], [address] [place] [address] Neurology Outpatient ProgressNote Patient ID: Ms. Argueta [...] tablets by mouth Daily as needed. rizatriptan (MAXALT-SOLAR THERMAL TECHNICIAN) 10 mg disintegrating tablet (Taking) Take 1 [...] BMI 32 .55 kg/m2 | ? No [place] Sleepiness Scale: 6 General: well developed and [...]
[~2019-09-21 13:32] MED LIST: ACYCLOVIR200 MG PO; CIPRO500 MG PO; ESTARYLLA1 EACH PO; FLONASE ALLERG9.9 ML NS; IBUPROFEN800 MG PO; LORAZEPAM2 MG PO; MULTI VITAMIN1 EACH PO; NUVARING VAGIN1 EACH VAGINAL; ONDANSETRON ODT8 MG PO; PROZAC40 MG PO; ZOFRAN4 MG PO
--- OUTSIDE RECORDS SUMMARY | 2019-09-21 13:36 | XMS ---
PreManage Notification: EVE BERNABE [employer] [place] Recorder Events No recent Security Events currently on file CRITERIA MET - [facility] CARE PROVIDERS There are no care providers on record at this time. Kristen has no Care Guidelines for this patient. Sofya VISIT COUNT (12 MO.) 2 Raman Baltazar M.C. 2 CHIP Landaverde TOTAL 4 NOTE: Visits indicate total known visits. ED/C VISIT TRACKING (12 MO.) 09/21/2019 13:33 [facility] [place] TYPE: Emergency COMPLAINT: - FELL DOWN STAIRS [facility]18[facility]2019 [facility] [facility] DIAGNOSES: - Dizziness - Dizziness and giddiness - Dizziness, Slurred speech - Slurred Speech [facility]2019 [facility] COMPLAINT: - DIZZY/FEELS FAINT DIAGNOSES: - Labyrinthitis, unspecified ear - Dizziness and giddiness [facility]2019 [facility] DIAGNOSES: - Vaginal Bleeding - poss miscarriage - Threatened INPATIENT VISIT TRACKING (12 MO.) No inpatient visits to display in this time frame [email or web address]
== END 2019-09-21 16:15 | disposition home or self-care (01) ==
LOC: ED 13:32
DX: S93.402A Sprain of unspecified ligament of left ankle, initial encounter (principal); S83.92XA Sprain of unspecified site of left knee, initial encounter; W10.9XXA Fall (on) (from) unspecified stairs and steps, initial encounter; F32.9 Major depressive disorder, single episode, unspecified; F17.200 Nicotine dependence, unspecified, uncomplicated; Z79.899 Other long term (current) drug therapy
CPT/HCPCS: 73560; 73610; 99283-25; A9270

== ENCOUNTER 2020-09-02 20:52 | Emergency (ER) | payer OTHER ==
[~2020-09-02] VITALS: Ht 167.6 cm; Wt 108.9 kg
== END 2020-09-02 22:06 | disposition home or self-care (01) ==
LOC: ED 20:52
DX: O9A.211 Injury, poisoning and certain other consequences of external causes complicating pregnancy, first trimester (principal); S16.1XXA Strain of muscle, fascia and tendon at neck level, initial encounter; O99.331 Smoking (tobacco) complicating pregnancy, first trimester; F17.200 Nicotine dependence, unspecified, uncomplicated; Z3A.01 Less than 8 weeks gestation of pregnancy; Z79.899 Other long term (current) drug therapy; V43.52XA Car driver injured in collision with other type car in traffic accident, initial encounter
CPT/HCPCS: 72040; 84702; 99284-25

== ENCOUNTER 2021-04-28 19:37 | Inpatient (IN) | payer OTHER ==
[~2021-04-28] VITALS: Ht 167.6 cm; Wt 122.9 kg
--- NOTE | 2021-04-28 23:45 | PR ---
[facility] [address], [place] [address] Signed Progress Notes IP Datetime Report Generated by CPN: 04/28/2021 23:45 PROGRESS NOTES: [id number] Impression: Normal Progression of Labor Procedures: Artificial ROM Plan: Continue Present Management VITAL SIGNS: [id number] Vital Signs: Reviewed; Within Normal Limits EXAM: [id number] Dilatation: 6.0 Effacement: 90 Station: -1 Contractions: q1-3 min MEMBRANES: [id number] Membranes Status: Ruptured Comments: Progressing well, s/p AROM Breathing through contractions, standing at bedside Encouraged continued movement, position changes Anticipate FETUS A: [id number] FHR Baseline: 135 Variability: Moderate 6-25bpm Accelerations: 15X15 Decelerations: None FHR Category: Category I Presentation: Vertex Comments on Fetus A: no evidence of acidemia FETUS B: [id number] Signing Physician: Edu Garnica DO Copies: ~ *Electronically Signed* 04/28/21 3197 EDU GARNICA DO PATIENT NAME: EVE BERNABE ZENIA PROGRESS NOTE DATE OF : 86 PHYSICIAN: EDU GARNICA DO RPT #: [id number] REPORT IS CONFIDENTIAL AND NOT TO BE RELEASED WITHOUT AUTHORIZATION
--- NOTE | 2021-04-30 10:39 | PR ---
[facility] [address] [facility] [place], [place] [address] Signed PP Progress Notes Datetime Report Generated by CPN: 04/30/2021 10:39 SUBJECTIVE: [id number] Pain: Within Normal Limits Nausea/Vomiting: Denies Flatus: Yes Bowel Movement: No Vital Signs: [id number] Vital Signs: Reviewed; Within Normal Limits Cardiovascular: Normal Respiratory: Normal Abdomen/Uterus: Normal Lochia: Normal Extremities: Normal Progress: Normal Exam Comments: NAD, sitting up in bed RRR No dyspnea Abd SNTND FFBU 1+ pitting edema BLLE IMPRESSION/PLAN/PROCEDURES: [id number] Impression: Normal Progression Plan: Continue Present Management; Discharge Procedures: None Progress Notes: PPD#1 s/p MIOL for GDM Hgb 10.2 this am Normal progression. Ambulating, voiding, tolerating regular diet. Pain well controlled with motrin Anticipate DC to home later today Signing Physician: Edu Garnica DO Copies: *Electronically Signed* 04/30/21 1039 EDU GARNICA DO PATIENT NAME: STEVENSHAWNFRANCIEVE KNUTSON PROGRESS NOTE DATE OF : 86 PHYSICIAN: EDU GARNICA DO RPT #: [id number] REPORT IS CONFIDENTIAL AND NOT TO BE RELEASED WITHOUT AUTHORIZATION [address] [place], [place] [address] Signed ~ *Electronically Signed* 04/30/21 1039 EDU GARNICA DO PATIENT NAME: VEE BERNABE PROGRESS NOTE DATE OF : 86 PHYSICIAN: EDU GARNICA DO RPT #: [id number] REPORT IS CONFIDENTIAL AND NOT TO BE RELEASED WITHOUT AUTHORIZATION
== END 2021-04-30 19:25 | disposition home or self-care (01) | DRG 806 ==
LOC: FBCO 19:37 → FBC 21:21
PROVIDERS: ADMIT Obstetrics & Gynecology; ATTEND Obstetrics & Gynecology
PROC: 10907ZC Drainage of Amniotic Fluid, Therapeutic from Products of Conception, Via Natural or Artificial Opening (ICD-10-PCS; 2021-04-28)
PROC: 10E0XZZ Delivery of Products of Conception, External Approach (ICD-10-PCS; principal; 2021-04-29)
PROC: 00HU33Z Insertion of Infusion Device into Spinal Canal, Percutaneous Approach (ICD-10-PCS; 2021-04-29)
PROC: 3E0R3BZ Introduction of Anesthetic Agent into Spinal Canal, Percutaneous Approach (ICD-10-PCS; 2021-04-29)
PROC: 0KQM0ZZ Repair Perineum Muscle, Open Approach (ICD-10-PCS; 2021-04-29)
PROC: 0UQMXZZ Repair Vulva, External Approach (ICD-10-PCS; 2021-04-29)
DX: O24.420 Gestational diabetes mellitus in childbirth, diet controlled (principal); O98.32 Other infections with a predominantly sexual mode of transmission complicating childbirth; Z37.0 Single live birth; Z20.822 Contact with and (suspected) exposure to COVID-19; Z3A.38 38 weeks gestation of pregnancy; O70.1 Second degree perineal laceration during delivery; O71.82 Other specified trauma to perineum and vulva; A60.00 Herpesviral infection of urogenital system, unspecified; O99.214 Obesity complicating childbirth; E66.9 Obesity, unspecified; O99.344 Other mental disorders complicating childbirth; F32.9 Major depressive disorder, single episode, unspecified; F41.9 Anxiety disorder, unspecified; F43.10 Post-traumatic stress disorder, unspecified; Z79.899 Other long term (current) drug therapy; Z86.19 Personal history of other infectious and parasitic diseases; Z87.891 Personal history of nicotine dependence; Z79.82 Long term (current) use of aspirin
CPT/HCPCS: 01960; 59025; 85027; C9803; G0463; J2590; J2795; J7121; U0003

== ENCOUNTER 2021-07-23 21:33 | Emergency (ER) | payer OTHER ==
[~2021-07-23] VITALS: Ht 167.6 cm; Wt 106.6 kg
[2021-07-23] MEDS ORDERED: ACYCLOVIR400 MG PO (22:45)
== END 2021-07-23 23:15 | disposition home or self-care (01) ==
LOC: ED 21:33
DX: U07.1 COVID-19 (principal); Z79.899 Other long term (current) drug therapy
CPT/HCPCS: 99284

== ENCOUNTER 2022-06-28 22:13 | Inpatient (IN) | payer OTHER ==
[~2022-06-28 22:13] MED LIST changes: +ACYCLOVIR400 MG PO
== END 2022-06-29 07:58 | disposition home or self-care (01) | DRG 833 ==
LOC: FBCO 22:13 → FBC 22:28
PROVIDERS: ADMIT Obstetrics & Gynecology; ATTEND Obstetrics & Gynecology
DX: O47.9 False labor, unspecified (principal); Z3A.00 Weeks of gestation of pregnancy not specified; Z20.822 Contact with and (suspected) exposure to COVID-19
CPT/HCPCS: 36415; 85027; 86850; 86900; 86901; 87502; A9270; C9803; U0003

== ENCOUNTER 2022-07-12 06:07 | Inpatient (IN) | payer OTHER ==
[~2022-07-12] VITALS: Ht 167.6 cm; Wt 120.2 kg
--- NOTE | 2022-07-12 06:27 | NUR ---
covid swab done to both nares and sent to in house lab.
--- NOTE | 2022-07-13 10:28 | PR ---
[facility] [address] [place], [place] [address] Signed PP Progress Notes Datetime Report Generated by CPN: 07/13/2022 10:27 SUBJECTIVE: [id number] Pain: Within Normal Limits Nausea/Vomiting: Denies Flatus: Yes Bowel Movement: Yes Vital Signs: [id number] Vital Signs: Reviewed; Within Normal Limits EXAM: Ongoing Cardiovascular: Normal Respiratory: Normal Abdomen/Uterus: Normal Lochia: Normal Breasts: Normal Extremities: Normal Progress: Normal Exam Comments: Gen: NAD, resting in chair at bedside CV: RRR Lungs: No dyspnea/ retractions Abd: SNTND Ext: 1+ BLLE IMPRESSION/PLAN/PROCEDURES: [id number] Impression: Normal Progression Plan: Continue Present Management; Discharge Procedures: None Progress Notes: Pt is a 31yo PPD#1 s/p precipitous -Progressing well : ambulating, voiding, tolerating regular diet, lochia light, pain well-controlled with motrin -Hgb 10.6 PPD#1 from 13.1 on admission -Desires DC to home today, well, has appointment scheduled with translational specialist for tomorrow, planning IUD (Mirena or Paragard) for contraception Signing Physician: Edu Garnica DO Copies: ~ *Electronically Signed* 07/13/22 1027 EDU GARNICA DO PATIENT NAME: EVE BERNABE PROGRESS NOTE DATE OF : 86 PHYSICIAN: EDU GARNICA DO RPT #: [id number] REPORT IS CONFIDENTIAL AND NOT TO BE RELEASED WITHOUT AUTHORIZATION
== END 2022-07-13 17:12 | disposition home or self-care (01) | DRG 806 ==
LOC: FBCO 06:07 → FBC 06:20
PROVIDERS: ADMIT Obstetrics & Gynecology; ATTEND Obstetrics & Gynecology
PROC: 10E0XZZ Delivery of Products of Conception, External Approach (ICD-10-PCS; principal; 2022-07-12)
PROC: 0KQM0ZZ Repair Perineum Muscle, Open Approach (ICD-10-PCS; 2022-07-12)
DX: O42.02 Full-term premature rupture of membranes, onset of labor within 24 hours of rupture (principal); O98.52 Other viral diseases complicating childbirth; Z37.0 Single live birth; O62.3 Precipitate labor; Z3A.38 38 weeks gestation of pregnancy; O70.1 Second degree perineal laceration during delivery; O99.214 Obesity complicating childbirth; Z87.891 Personal history of nicotine dependence; Z67.40 Type O blood, Rh positive; O24.429 Gestational diabetes mellitus in childbirth, unspecified control; B00.9 Herpesviral infection, unspecified
CPT/HCPCS: 36415; 85027; 86850; 86900; 86901; 87502; A9270; C9803; J2590; U0003

== ENCOUNTER 2022-07-17 18:07 | Observation (INO) | payer OTHER ==
[~2022-07-17] VITALS: Ht 167.6 cm; Wt 114.0 kg
[~2022-07-17 18:07] MED LIST changes: -MULTI VITAMIN1 EACH PO; +[UNRECOGNIZED DRUG - OTHER] PO
--- OUTSIDE RECORDS SUMMARY | 2022-07-17 18:10 | XMS ---
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 Care History Medical/Surgical 09/22/2019 [facility] \T\middot;\T\nbsp; PATIENT- [facility]IG[facility] \T\middot;\T\nbsp; [facility]. \T\middot;\ T\nbsp; [facility] FOR [facility] IF PATIENT CALLS FIRST THING IN THE MORNING. [facility]12 MO[facility] T[facility] 4 NOTE: Visits indicate total known visits. 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 - COVID-19 INPATIENT VISIT TRACKING (12 MO.) 07/12/2022 06:20 [facility] [place] TYPE: [facility] COMPLAINT: - LABOR DIAGNOSES: - Obesity complicating childbirth - Personal history of nicotine dependence - Other viral diseases complicating childbirth - Type O blood, Rh positive - Full-term premature rupture of membranes, onset of labor within 24 hours of rupture - 38 weeks gestation of - Herpesviral infection, unspecified - Herpesviral infection, unspecified - Gestational diabetes mellitus in childbirth, unspecified control - Type O blood, Rh positive - Second degree perineal laceration during delivery - 38 weeks gestation of - Precipitate labor - Second degree perineal laceration during delivery - Precipitate labor - Gestational diabetes mellitus in childbirth, unspecified control - Personal history of nicotine dependence - Obesity complicating childbirth - Single live - Single live - Other viral diseases complicating childbirth 06/28/2022 22:28 [facility] [place] TYPE: [facility] COMPLAINT: - CONTRACTIONS, R/O LABOR DIAGNOSES: - Other specified related conditions, third trimester - False labor, unspecified - Contact with and (suspected) exposure to COVID-19 - Contact with and (suspected) exposure to COVID-19 - Weeks of gestation of not specified [email or web address]
[2022-07-18] MEDS ORDERED: FLUOXETINE HCL20 MG PO (11:58)
[2022-07-18] MEDS ORDERED: IBUPROFEN800 MG PO (11:59)
--- NOTE | 2022-07-18 21:06 | EKG ---
[facility] [address] [facility] [place] [address] Signed Sinus tachycardia Otherwise normal ECG No previous ECGs available Confirmed by Brittaney Pacheco MD () on 07/18/2022 9:06:04 PM Electronically Signed By: BRITTANEY PACHECO MD 07/18/222105 PATIENT NAME: EVE BERNABE Electrocardiogram DATE OF : 86 PHYSICIAN: BRITTANEY PACHECO MD REPORT #: [id number] REPORT IS CONFIDENTIAL AND NOT TO BE RELEASED WITHOUT AUTHORIZATION
[2022-07-19] MEDS ORDERED: AMOX TR-K CLV1 EAC1 PO (10:11)
--- NOTE | 2022-07-20 09:33 | CONS ---
[facility] [address] [place], [place] [address] Signed DATE OF CONSULTATION: 07/17/2022 HISTORY OF PRESENT ILLNESS: The patient is a 31-year-old female, 6, para 2, SAB 4, status post vaginal delivery on July 12 after precipitous labor and delivery. [facility] with a complaint of fever and worsening vaginal pain. Her labor and delivery was uncomplicated, other than it was precipitous. She did have significant dilation for 2 to 3 days before her delivery, however. The time of rupture of membranes was very short. She was GBS negative. She did have a second-degree vaginal laceration, which was repaired at delivery. She was discharged home after 24 hours in good condition. She had been feeling fairly well, but reports her vaginal pain worsened yesterday and increased again today. She presented to the emergency room this morning, was triaged to the clinic, where she was diagnosed with hemorrhoids. This evening, however, she delivered fevers and chills and came back to the ED for further evaluation. She denies any dysuria, cold or upper respiratory symptoms. Her bowel movements are normal and they are not painful. Her bleeding has been normal for being 5 days . She is breast-feeding, but primarily pumping as her baby has a lip and tongue tie. Her breasts have been full but not painful. PAST MEDICAL HISTORY: Medical illnesses positive for depression on medication, positive for migraine with aura, positive for mild asthma, GDM with her , hx of kidney stones and asymptomatic gallstone MEDICATIONS: vitamins, Prozac 20 mg, acyclovir, Motrin 800 mg, Tylenol as needed, and inhaler as needed. ALLERGIES: To seafood. REVIEW OF SYSTEMS: Otherwise negative except as in HPI. PHYSICAL EXAMINATION: VITAL SIGNS: Her blood pressure was initially 141/69 and declined to 126/55, temperature initially 101.2 and declined to 100.1, pulse initially 120 and declined to 104 after the first hour with hydration. GENERAL: She is a well-developed, obese female, in no acute distress. LUNGS: Clear. HEART: Regular rate and rhythm without any murmur. BREASTS: Full, but not engorged. No erythema. No tenderness. No masses. ABDOMEN: Nontender. There was no hepatosplenomegaly. The fundus is palpable and firm, Electronically Signed By: ELIZABETH GONCALVES MD 07/18/22 181 PATIENT NAME: EVE BERNABE CONSULTATION DATE OF : 86 REPORT #: [id number] PHYSICIAN: ELIZABETH GONCALVES MD PCP: [facility] REPORT IS CONFIDENTIAL AND NOT TO BE RELEASED WITHOUT AUTHORIZATION [facility] [address] [place] [address] Signed nontender, at U-4. PELVIS: The external genitalia appeared normal without any bruising, swelling or erythema. On the vaginal exam, she is tender along the posterior vaginal wall, though the sutures do feel intact. RECTAL: Deferred. LABORATORY DATA: Her white count was 11,000, hematocrit 34.6, segs 85.1, lymphocytes 8.9, platelets 347. UA was negative other than blood, which was a clean catch. Her chemistry panel was normal. Lactate was 1.7. IMPRESSION: A 31-year-old female, 6, para 2, SAB 4 with fever and vaginal pain 5 days . The source of the fever is unclear, but I suspect this may be a developing abscess or infection around her vaginal laceration. I do think it is prudent to admit her for observation and begin IV antibiotics and follow her symptoms. PLAN: Admit to obs. Begin IV ampicillin, gentamicin, and clindamycin, sitz baths. We will repeat labs in the morning. Elizabeth Goncalves MD PJW/MODL /[id number] cc: [facility] Edu Garnica DO Copies: [facility] EDU GARNICA DO ~ Electronically Signed By: ELIZABETH GONCALVES MD 07/18/221810 PATIENT NAME: EVE BERNABE CONSULTATION DATE OF : 86 REPORT #: [id number] PHYSICIAN: ELIZABETH GONCALVES MD PCP: [facility] REPORT IS CONFIDENTIAL AND NOT TO BE RELEASED WITHOUT AUTHORIZATION
== END 2022-07-19 11:35 | disposition home or self-care (01) ==
LOC: ED 18:07 → CCU 18:09
PROVIDERS: ADMIT Obstetrics & Gynecology; ATTEND Obstetrics & Gynecology
DX: O86.4 Pyrexia of unknown origin following delivery (principal); O99.893 Other specified diseases and conditions complicating puerperium; O99.215 Obesity complicating the puerperium; O99.53 Diseases of the respiratory system complicating the puerperium; J45.909 Unspecified asthma, uncomplicated; E66.9 Obesity, unspecified; R10.2 Pelvic and perineal pain; Z91.013 Allergy to seafood
CPT/HCPCS: 36415; 76830; 76856; 80053; 80170; 81001; 83605; 85025; 87502; 93005; 93010; 96366; 96367; 96372; 96374; 96375; 96376; 99285-25; A9270; C9803; G0378; J0290; J1580; J1644; J7030; J7060; J7121; U0003

== ENCOUNTER 2022-07-21 19:49 | Emergency (ER) | payer OTHER ==
[~2022-07-21 19:49] MED LIST changes: +AMOX TR-K CLV1 EAC1 PO; +FLUOXETINE HCL20 MG PO
--- OUTSIDE RECORDS SUMMARY | 2022-07-21 19:52 | XMS ---
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 Care History Medical/Surgical 09/22/2019 [facility] \T\middot;\T\nbsp; PATIENT- [facility] ELIGIBLE \T\middot;\T\nbsp; PLEASE REFER PATIENT TO [facility] FOR NON EMERGENT MEDICAL NEEDS. \T\middot;\ T\nbsp; [facility] CAN SEE PATIENTS SAME DAY FOR APTS IF PATIENT CALLS FIRST THING IN THE MORNING. [facility]. [facility] (12 MO.) [facility] TOTAL 5 NOTE: Visits indicate total known visits. ED/UCC VISIT TRACKING (12 MO.) 07/21/2022 19:49 [facility] [place] TYPE: Emergency COMPLAINT: - HEMORRHAGE 07/17/2022 18:08 [facility] [place] TYPE: Emergency COMPLAINT: - FEVER 07/17/2022 11:35 [facility] [place] TYPE: Emergency COMPLAINT: - RECTAL INFLAMMATION 12/01/2021 22:29 [facility] Ophelia SUMMERS TYPE: Emergency DIAGNOSES: - Shortness of Breath - Other chest pain - Pleuritic Chest Pain (Adult) - SOB CP 7 wks preg - Shortness of breath 07/23/2021 21:34 [facility] TYPE: Emergency COMPLAINT: - FEVER DIAGNOSES: - Other longterm (current) drug therapy - COVID-19 INPATIENT VISIT TRACKING (12 MO.) 07/17/2022 18:09 [facility] [place] TYPE: Observation COMPLAINT: - FEVER, 5 DAYS DIAGNOSES: - Obesity complicating the puerperium - Allergy to seafood - Pelvic and perineal pain - Obesity, unspecified - Unspecified asthma, uncomplicated - Pyrexia of unknown origin following delivery - Other specified diseases and conditions complicating puerperium - Diseases of the respiratory system complicating the puerperium 07/12/2022 06:20 [facility] [place] TYPE: [facility] COMPLAINT: - LABOR DIAGNOSES: - Precipitate labor - Gestational diabetes mellitus in childbirth, unspecified control - Personal history of nicotine dependence - Obesity complicating childbirth - Single live - Single live - Other viral diseases complicating childbirth - Obesity complicating childbirth - Personal history [...] - Second degree perineal laceration during delivery 06/28/2022 22:28 [facility] [place] TYPE: [facility] COMPLAINT: - CONTRACTIONS, R/O LABOR DIAGNOSES: - Contact with and (suspected) exposure to COVID-19 - Weeks of gestation of not specified - Other specified related conditions, third trimester - False labor, unspecified - Contact with and (suspected) exposure to COVID-19 [email or web address]
== END 2022-07-21 21:17 | disposition home or self-care (01) ==
LOC: ED 19:49
DX: O72.1 Other immediate postpartum hemorrhage (principal); F32.A Depression, unspecified; Z79.899 Other long term (current) drug therapy
CPT/HCPCS: 36415; 80053; 85025; J2405

== ENCOUNTER 2022-10-20 12:51 | Emergency (ER) | payer OTHER ==
[~2022-10-20] VITALS: Ht 167.6 cm; Wt 107.5 kg
--- OUTSIDE RECORDS SUMMARY | 2022-10-20 14:22 | XMS ---
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 Care History Medical/Surgical 09/22/2019 [facility] \T\middot;\T\nbsp; PATIENT- [facility] ELIGIBLE \T\middot;\T\nbsp; PLEASE REFER PATIENT TO [facility] FOR NON EMERGENT MEDICAL NEEDS. \T\middot;\ T\nbsp; [facility] CAN SEE PATIENTS SAME DAY FOR APTS IF PATIENT CALLS FIRST THING IN THE MORNING. E.D. VISIT COUNT (12 MO[address] TOTAL 7 NOTE: Visits indicate total known visits. ED/UCC VISIT TRACKING (12 MO.) 10/20/2022 12:52 [facility] [place] TYPE: Emergency COMPLAINT: - CHEST PAIN, ARMS NUMB, DIZZY 10/09/2022 06:34 [facility] [place] TYPE: Emergency COMPLAINT: - R EYE SWOLLEN/PAIN 07/21/2022 22:20 [facility] TYPE: Emergency DIAGNOSES: - Delayed and secondary hemorrhage - post opp issue/ vaginal bleeding 07/21/2022 19:49 [facility] [place] TYPE: Emergency COMPLAINT: - HEMORRHAGE DIAGNOSES: - Other detention (current) drug therapy - Abnormal uterine and vaginal bleeding, unspecified - Depression, unspecified - Other immediate hemorrhage - Other immediate hemorrhage 07/17/2022 18:08 [facility] [place] TYPE: Emergency COMPLAINT: - FEVER 07/17/2022 11:35 [facility] [place] TYPE: Emergency COMPLAINT: - RECTAL INFLAMMATION 12[facility]01/2021 22:[facility] [place] [facility]: Emergency DIAGNOSES: - Shortness of Breath - Other chest pain - Pleuritic Chest Pain (Adult) - SOB CP 7 wks preg - Shortness of breath INPATIENT VISIT TRACKING (12 MO.) 07/17/2022 18:09 [facility] [place] TYPE: Observation COMPLAINT: - FEVER, 5 DAYS DIAGNOSES: - Obesity complicating the puerperium - Allergy to seafood - Pelvic and perineal pain - Diseases of the respiratory system complicating the puerperium - Contact with and (suspected) exposure to COVID-19 - Pyrexia of unknown origin following delivery - Other specified diseases and conditions complicating puerperium - Obesity, unspecified - Unspecified asthma, uncomplicated 07/12/2022 06:20 [facility] TYPE: [facility] COMPLAINT: - LABOR DIAGNOSES: - Gestational diabetes mellitus in childbirth, unspecified [...] perineal laceration during delivery - Precipitate labor 06/28/2022 22:28 [facility] [place] TYPE: [facility] COMPLAINT: - CONTRACTIONS, R/O LABOR DIAGNOSES: - Contact with and (suspected) exposure to COVID-19 - Weeks of gestation of not specified - Other specified related conditions, third trimester - False labor, unspecified - Contact with and (suspected) exposure to COVID-19 [email or web address]
--- NOTE | 2022-10-20 20:47 | EKG ---
[facility] [address] [facility] [place], [place] [address] Signed Normal sinus rhythm Normal ECG When compared with ECG of 17-JUL-2022 18:19, No significant change was found Confirmed by SASHA OLMOS MD ([id number]) on 10/20/2022 8:47:33 PM Electronically Signed By: SASHA OLMOS MD 10/20/222046 PATIENT NAME: EVE BERNABE ZENIA Electrocardiogram DATE OF : 86 PHYSICIAN: SASHA OLMOS MD REPORT #: [id number] REPORT IS CONFIDENTIAL AND NOT TO BE RELEASED WITHOUT AUTHORIZATION
== END 2022-10-20 15:43 | disposition home or self-care (01) ==
LOC: ED 12:51
DX: R07.89 Other chest pain (principal); J45.909 Unspecified asthma, uncomplicated; Z79.899 Other long term (current) drug therapy
CPT/HCPCS: 36415; 71045; 80053; 83735; 84484; 85025; 93005; 93010; 99285-25; A9270

== ENCOUNTER 2022-12-07 00:37 | Emergency (ER) | payer BC, OTHER ==
[~2022-12-07] VITALS: Ht 167.6 cm; Wt 110.1 kg
--- OUTSIDE RECORDS SUMMARY | 2022-12-07 00:42 | XMS ---
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 Care History Medical/Surgical 09/22/2019 [facility] \T\middot;\T\nbsp; PATIENT- [facility] ELIGIBLE \T\middot;\T\nbsp; PLEASE REFER PATIENT TO [facility] FOR NON EMERGENT MEDICAL NEEDS. \T\middot;\ T\nbsp; [facility] CAN SEE PATIENTS SAME DAY FOR APTS IF PATIENT CALLS FIRST THING IN THE MORNING. E.D. VISIT COUNT (12 MO.) [address] TOTAL 7 NOTE: Visits indicate total known visits. 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 - Abnormal uterine and vaginal bleeding, unspecified - Depression, unspecified 07/17/2022 18:08 [facility] [place] TYPE: Emergency COMPLAINT: - FEVER 07/17/2022 11:35 [facility] [place] TYPE: Emergency COMPLAINT: - RECTAL INFLAMMATION INPATIENT VISIT TRACKING (12 MO.) 07/17/2022 18:09 [facility] [place] TYPE: Observation COMPLAINT: - FEVER, 5 DAYS DIAGNOSES: - Contact with and (suspected) exposure to COVID-19 - Pyrexia of unknown origin following delivery - Other specified diseases and conditions complicating puerperium - Obesity, unspecified - Unspecified asthma, uncomplicated - Obesity complicating the puerperium - Allergy to seafood - Pelvic and perineal pain - Diseases of the respiratory system complicating the puerperium 07/12/2022 06:20 [facility] [place] TYPE: [facility] COMPLAINT: - LABOR DIAGNOSES: - Full-term premature rupture of membranes, onset [...] childbirth - Type O blood, Rh positive 06/28/2022 22:28 [facility] [place] TYPE: [facility] COMPLAINT: - CONTRACTIONS, R/O LABOR DIAGNOSES: - False labor, unspecified - Contact with and (suspected) exposure to COVID-19 - Contact with and (suspected) exposure to COVID-19 - Weeks of gestation of not specified - Other specified related conditions, third trimester [email or web address]
[2022-12-07] MEDS ORDERED: LORAZEPAM0.5 MG PO (00:50)
--- NOTE | 2022-12-07 07:18 | EKG ---
[facility] [address] [facility] [place], [place] [address] Signed Normal sinus rhythm Normal ECG When compared with ECG of 20-OCT-2022 12:59, No significant change was found Confirmed by SASHA OLMOS MD ([id number]) on 12/07/2022 7:18:02 AM Electronically Signed By: SASHA OLMOS MD 12/07/22 0718 PATIENT NAME: EVE BERNABE Electrocardiogram DATE OF : 86 PHYSICIAN: SASHA OLMOS MD REPORT #: [id number] REPORT IS CONFIDENTIAL AND NOT TO BE RELEASED WITHOUT AUTHORIZATION
== END 2022-12-07 01:44 | disposition home or self-care (01) ==
LOC: ED 00:37
DX: R00.2 Palpitations (principal); J45.909 Unspecified asthma, uncomplicated; Z79.899 Other long term (current) drug therapy
CPT/HCPCS: 36415; 80053; 83735; 84484; 85025; 93005; 93010

== ENCOUNTER 2023-01-26 20:30 | Emergency (ER) | payer BC, OTHER ==
[~2023-01-26] VITALS: Ht 167.6 cm; Wt 111.9 kg
[~2023-01-26 20:30] MED LIST changes: +LORAZEPAM0.5 MG PO
[2023-01-26] MEDS ORDERED: PROZAC40 MG PO (20:56)
[2023-01-26] MEDS ORDERED: M-NATAL PLUS T1 EACH PO (20:56)
[2023-01-26] MEDS ORDERED: OMEPRAZOLE20 MG PO (20:57)
[2023-01-26] MEDS ORDERED: FLUTICASONE PRO16 GM NAS (20:57)
[2023-01-26] MEDS ORDERED: HYDROCODON-ACE1 EA10 PO (23:19)
[2023-01-26] MEDS ORDERED: ONDANSETRON ODT8 MG PO (23:19)
[2023-01-26] MEDS ORDERED: CEFDINIR300 MG PO (23:19)
== END 2023-01-26 23:44 | disposition home or self-care (01) ==
LOC: ED 20:30
DX: N30.91 Cystitis, unspecified with hematuria (principal); Z88.5 Allergy status to narcotic agent; Z91.013 Allergy to seafood; Z91.09 Other allergy status, other than to drugs and biological substances; Z79.899 Other long term (current) drug therapy; J45.909 Unspecified asthma, uncomplicated
CPT/HCPCS: 36415; 74176; 80053; 81001; 83690; 84703; 85025; 96374; 96375; 99284-25; A9270; J1200; J2270; J2405; J7030

== ENCOUNTER 2023-09-07 12:46 | Emergency (ER) | payer BC, OTHER ==
[~2023-09-07] VITALS: Ht 167.6 cm; Wt 116.3 kg
[~2023-09-07 12:46] MED LIST changes: +CEFDINIR300 MG PO; +EPINEPHRIN0.3 MG/0.3 IM; +ESCITALOPRAM OX10 MG PO; +FLUTICASONE PRO16 GM NAS; +HYDROCODON-ACE1 EA10 PO; +LOMOTIL TABLET1 EACH PO; +M-NATAL PLUS T1 EACH PO; +OMEPRAZOLE20 MG PO; +ONDANSETRON HCL4 MG PO
--- OUTSIDE RECORDS SUMMARY | 2023-09-07 12:48 | XMS ---
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 Care History Medical/Surgical 09/22/2019 [facility] \T\middot;\T\nbsp; PATIENT- [facility] ELIGIBLE \T\middot;\T\nbsp; PLEASE REFER PATIENT TO [facility] FOR NON EMERGENT MEDICAL NEEDS. \T\middot;\ T\nbsp; [facility] CAN SEE PATIENTS SAME DAY FOR APTS IF PATIENT CALLS FIRST THING IN THE MORNING. E.D. VISIT COUNT (12 MO.) 6 [facility] 1 [facility] ([place] 1 [facility] ([facility] TOTAL 8 NOTE: Visits indicate total known visits. ED/UCC VISIT TRACKING (12 MO.) 09/07/2023 12:[address] 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 [place] TYPE: Emergency COMPLAINT: - LT SIDE BACK PAIN,NAUSEA,VOMITING,DIZZY DIAGNOSES: - Allergy status to narcotic agent - Allergy to seafood - Cystitis, unspecified with hematuria - Cystitis, unspecified without hematuria - Left lower quadrant pain - Other allergy status, other than to drugs and biological substances - Other assisted (current) drug therapy - Unspecified asthma, uncomplicated 12/07/2022 00:39 [facility] [place] TYPE: Emergency COMPLAINT: - HEART ISSUE ARM AND SHOULDER PAIN DIAGNOSES: - Other assisted (current) drug therapy - Palpitations - Unspecified asthma, uncomplicated 10/20/2022 12:52 [facility] [place] TYPE: Emergency COMPLAINT: - CHEST PAIN, ARMS NUMB, DIZZY DIAGNOSES: - Dizziness and giddiness - Other chest pain - Other assisted (current) drug therapy - Unspecified asthma, uncomplicated 10/09/2022 06:34 [facility] [place] TYPE: Emergency COMPLAINT: - R EYE SWOLLEN/PAIN INPATIENT VISIT TRACKING (12 MO.) No inpatient visits to display in this time frame [id number]
[2023-09-07 13:20] LABS: BASOPHILS 1.4 % (0-2); HEMATOCRIT 38.7 % (35.0-50.0); LYMPHOCYTES 25.1 % (24-44); MCH 29.4 (27-36); MCHC 33.6 g/dl (30-36); MCV 87.5 fl (81-99); MONOCYTES 5.9 % (0-12); NEUTROPHILS 64.6 % (39-80); PLATELET COUNT 375 K/uL (140-440); RBC 4.43 M/ul (4.3-5.7)
[2023-09-07 13:31] LABS: PARTIAL THROMBOPLASTIN TIME 28.7 Sec (22.9-41.3)
[2023-09-07 13:32] LABS: INR 1.02 (0.80-1.30); PROTIME 12.9 Sec (11.2-14.2)
[2023-09-07 13:35] LABS: ALBUMIN 3.6 g/dL (3.4-5.0); ALBUMIN/GLOBULIN RATIO 0.84 (1.1-2.4); ANION GAP 12.5 (7-21); BILIRUBIN, TOTAL 0.7 ng/dL (0.2-1.0); BUN/CREATININE RATIO 14.49 (6.0-28.6); CALCIUM 9.2 mg/dL (8.5-10.1); CREATININE, SERUM 0.69 mg/dL (0.55-1.02); POTASSIUM 3.5 mmol/L (3.5-5.1); PROTEIN, TOTAL 7.9 g/dL (6.4-8.2)
[2023-09-07 14:44] LABS: INFLUENZA B NAA NEGATIVE (NEGATIVE); RESPIRATORY SYNCYTIAL VIR NAA NEGATIVE (NEGATIVE)
[2023-09-07 16:42] VITALS: BP 130/68
--- NOTE | 2023-09-07 21:49 | EKG ---
[facility] [address] [facility] [place] [address] Signed Sinus rhythm with 1st degree AV block Otherwise normal ECG When compared with ECG of 07-DEC-2022 00:46, No significant change was found Confirmed by Brittaney Pacheco MD () on 09/07/2023 9:48:53 PM Electronically Signed By: BRITTANEY PACHECO MD 09/07/23 2149 PATIENT NAME: EVE BERNABE Electrocardiogram DATE OF : 86 PHYSICIAN: BRITTANEY PACHECO MD REPORT #: [id number] REPORT IS CONFIDENTIAL AND NOT TO BE RELEASED WITHOUT AUTHORIZATION
== END 2023-09-07 16:42 | disposition home or self-care (01) ==
LOC: ED 12:46
PROVIDERS: Emergency Medicine
DX: G43.809 Other migraine, not intractable, without status migrainosus (principal); Z11.52 Encounter for screening for COVID-19; Z88.5 Allergy status to narcotic agent; Z91.013 Allergy to seafood; Z91.048 Other nonmedicinal substance allergy status; Z79.899 Other long term (current) drug therapy
CPT/HCPCS: 36415; 70450; 70496; 70498; 71045; 80053; 84703; 85025; 85610; 85730; 87502; 93005; 93010; 99284-25; C9803; J1885; J3030; Q9967; U0002

== ENCOUNTER 2023-11-28 18:01 | Emergency (ER) | payer BC, OTHER ==
[~2023-11-28] VITALS: Ht 167.6 cm; Wt 113.8 kg
[2023-11-28] MEDS ORDERED: PREDNISONE20 MG PO (19:33)
[2023-11-28] MEDS ORDERED: VENTOLIN HFA18 GM INH (19:33)
[2023-11-28] MEDS ORDERED: ZITHROMAX250 MG PO (19:33)
[2023-11-28] MEDS ORDERED: ALBUTEROL2.5 MG/3 M INH (19:33)
[2023-11-28 19:51] VITALS: BP 122/66
== END 2023-11-28 19:51 | disposition home or self-care (01) ==
LOC: ED 18:01
DX: J18.9 Pneumonia, unspecified organism (principal); Z88.5 Allergy status to narcotic agent; Z91.09 Other allergy status, other than to drugs and biological substances; Z91.013 Allergy to seafood
CPT/HCPCS: 71046; 94640; J7512

== ENCOUNTER 2023-12-11 01:09 | Emergency (ER) | payer BC, OTHER ==
[~2023-12-11] VITALS: Ht 167.6 cm; Wt 110.7 kg
[~2023-12-11 01:09] MED LIST changes: +ALBUTEROL2.5 MG/3 M INH; +PREDNISONE20 MG PO; +VENTOLIN HFA18 GM INH; +ZITHROMAX250 MG PO
[2023-12-11 01:26] LABS: BASOPHILS 1.1 % (0-2); EOSINOPHILS 2.6 % (0-6); HEMATOCRIT 38.5 % (35.0-50.0); HEMOGLOBIN 12.9 g/dL (12.0-18.0); LYMPHOCYTES 32.5 % (24-44); MCHC 33.5 g/dl (30-36); MCV 86.7 fl (81-99); NEUTROPHILS 57.8 % (39-80); PLATELET COUNT 393 K/uL (140-440); RBC 4.44 M/ul (4.3-5.7); RDW 13.7 (10.5-15.0)
[2023-12-11] MEDS ORDERED: BREYNA 80-4.510.3 GM IH (01:30)
[2023-12-11 01:43] LABS: ALBUMIN/GLOBULIN RATIO 0.68 (1.1-2.4); ANION GAP 13.7 (7-21); BILIRUBIN, TOTAL 0.4 ng/dL (0.2-1.0); BUN/CREATININE RATIO 13.33 (6.0-28.6); CALCIUM 8.9 mg/dL (8.5-10.1); CREATININE, SERUM 0.75 mg/dL (0.55-1.02); POTASSIUM 3.7 mmol/L (3.5-5.1); PROTEIN, TOTAL 7.4 g/dL (6.4-8.2)
[2023-12-11] MEDS ORDERED: ASPIRIN 81 MG CHEW PO ONE (04:00)
[2023-12-11] MEDS ORDERED: NITROGLYCERIN 0.4 MG SUBL SL PRN (04:00)
[2023-12-11] MEDS ORDERED: ACETAMINOPHEN 500 MG TAB PO ONE (04:15)
[2023-12-11] MEDS ORDERED: HEParin SOD (PORCINE) 5,000 UNIT/ML VIAL IV ONE (05:00)
[2023-12-11] MEDS ORDERED: HEPARIN SOD,PORK IN 0.45% NACL 500 ML IV SCH (05:00)
[2023-12-11] MEDS ORDERED: NITROGLYCERIN 50MG/D5W 250 ML IV SCH (05:00)
[2023-12-11 05:40] LABS: PARTIAL THROMBOPLASTIN TIME 28.1 Sec (22.9-41.3)
[2023-12-11 05:41] LABS: PROTIME 12.5 Sec (11.2-14.2)
[2023-12-11] MEDS ORDERED: METOPROLOL TARTRATE 25 MG TAB PO ONE (06:30)
[2023-12-11] MEDS ORDERED: ENOXAPARIN SODIUM 100 MG/ML SYR SUB-Q ONE (06:30)
[2023-12-11 07:05] VITALS: BP 124/72
--- NOTE | 2023-12-11 13:06 | EKG ---
[facility] [address] [facility] [place] [address] Signed Normal sinus rhythm Normal ECG When compared with ECG of 07-SEP-2023 13:51, DE interval has decreased Confirmed by Brittaney Pacheco MD () on 12/11/2023 1:06:15 PM Electronically Signed By: BRITTANEY PACHECO MD 12/11/23 1306 PATIENT NAME: EVE BERNABE Electrocardiogram DATE OF : 86 PHYSICIAN: BRITTANEY PACHECO MD REPORT #: [id number] REPORT IS CONFIDENTIAL AND NOT TO BE RELEASED WITHOUT AUTHORIZATION
--- NOTE | 2023-12-11 13:07 | EKG ---
[facility] [address] [facility] [place] [address] Signed Normal sinus rhythm Normal ECG When compared with ECG of 11-DEC-2023 01:14, No significant change was found Confirmed by Brittaney Pacheco MD () on 12/11/2023 1:07:15 PM Electronically Signed By: BRITTANEY PACHECO MD 12/11/23 1307 PATIENT NAME: EVE BERNABE Electrocardiogram DATE OF : 86 PHYSICIAN: BRITTANEY PACHECO MD REPORT #: [id number] REPORT IS CONFIDENTIAL AND NOT TO BE RELEASED WITHOUT AUTHORIZATION
== END 2023-12-11 07:40 | disposition short-term general hospital (02) ==
LOC: ED 01:09
PROVIDERS: Emergency Medicine
DX: I21.4 Non-ST elevation (NSTEMI) myocardial infarction (principal); J45.909 Unspecified asthma, uncomplicated; Z88.5 Allergy status to narcotic agent; Z91.013 Allergy to seafood; Z91.048 Other nonmedicinal substance allergy status; Z79.899 Other long term (current) drug therapy
CPT/HCPCS: 36415; 71045; 71260; 80053; 84484; 85025; 85379; 85610; 85730; 93005; 93010; 96365; 96376; 99285-25; A9270; J1644; J1650; Q9967

== ENCOUNTER 2024-07-24 01:44 | Emergency (ER) | payer BC, OTHER ==
[~2024-07-24] VITALS: Ht 167.6 cm; Wt 122.0 kg
[~2024-07-24 01:44] MED LIST changes: +ASPIRIN81 MG PO; +BREYNA 80-4.510.3 GM IH; +CYCLOBENZAPRINE10 MG PO; +ISOSORBIDE MONO30 MG PO; +METOPROLOL SUCC25 MG PO; +NITROGLYCERIN0.4 MG SL
[2024-07-24] MEDS ORDERED: AMLODIPINE BESYL5 MG (01:52)
[2024-07-24] MEDS ORDERED: TRIAMTERENE-HC1 EAC3 (01:53)
[2024-07-24] MEDS ORDERED: NEOMYCIN/POLYMYXIN/HYDROCORT 10 ML HOME.PACK OTIC ONE (02:00)
[2024-07-24 02:05] VITALS: BP 133/74
== END 2024-07-24 02:08 | disposition home or self-care (01) ==
LOC: ED 01:44
DX: H60.91 Unspecified otitis externa, right ear (principal); I25.2 Old myocardial infarction; J45.909 Unspecified asthma, uncomplicated; Z88.5 Allergy status to narcotic agent; Z91.013 Allergy to seafood; Z91.048 Other nonmedicinal substance allergy status; Z79.899 Other long term (current) drug therapy; Z79.82 Long term (current) use of aspirin
CPT/HCPCS: 99282

== ENCOUNTER 2024-07-31 01:55 | Emergency (ER) | payer BC, OTHER ==
[~2024-07-31] VITALS: Ht 167.6 cm; Wt 120.0 kg
[~2024-07-31 01:55] MED LIST changes: +AMLODIPINE BESYL5 MG; +TRIAMTERENE-HC1 EAC3
[2024-07-31 02:15] LABS: BASOPHILS 1.4 % (0-2); EOSINOPHILS 4.2 % (0-6); HEMATOCRIT 37.1 % (35.0-50.0); HEMOGLOBIN 12.5 g/dL (12.0-18.0); LYMPHOCYTES 37.3 % (24-44); MCH 27.9 (27-36); MCHC 33.6 g/dl (30-36); MCV 83.1 fl (81-99); MONOCYTES 6.5 % (0-12); NEUTROPHILS 50.6 % (39-80); PLATELET COUNT 393 K/uL (140-440); RBC 4.46 M/ul (4.3-5.7); RDW 13.5 (10.5-15.0)
[2024-07-31 02:34] LABS: ALBUMIN 3.2 g/dL (3.4-5.0); ALBUMIN/GLOBULIN RATIO 0.7 (1.1-2.4); BILIRUBIN, TOTAL 0.3 ng/dL (0.2-1.0); BUN/CREATININE RATIO 17.5 (6.0-28.6); CALCIUM 8.9 mg/dL (8.5-10.1); CREATININE, SERUM 0.8 mg/dL (0.55-1.02); PROTEIN, TOTAL 7.8 g/dL (6.4-8.2)
[2024-07-31] MEDS ORDERED: PANTOPRAZOLE SODIUM 40 MG TABEC PO ONE (04:15)
[2024-07-31] MEDS ORDERED: PROTONIX40 MG PO (04:20)
[2024-07-31 04:27] VITALS: BP 124/75
[2024-07-31] MEDS ORDERED: POTASSIUM CHLORIDE 10 MEQ TABCR PO ONE (04:30)
--- NOTE | 2024-08-02 15:37 | EKG ---
[facility] [address] [facility] [place], [place] [address] Signed Normal sinus rhythm Normal ECG When compared with ECG of 09-APR-2024 17:11, No significant change was found Confirmed by Maritza Kemp MD ([id number]) on 08/02/2024 3:37:51 PM Electronically Signed By: MARITZA KEMP MD 08/02/24 1537 PATIENT NAME: EVE BERNABE Electrocardiogram DATE OF : 86 PHYSICIAN: MARITZA KEMP MD REPORT #: [id number] REPORT IS CONFIDENTIAL AND NOT TO BE RELEASED WITHOUT AUTHORIZATION
== END 2024-07-31 04:28 | disposition home or self-care (01) ==
LOC: ED 01:55
PROVIDERS: Emergency Medicine
DX: R10.12 Left upper quadrant pain (principal); R10.11 Right upper quadrant pain; I25.2 Old myocardial infarction; Z88.5 Allergy status to narcotic agent; Z91.013 Allergy to seafood; Z91.09 Other allergy status, other than to drugs and biological substances; Z79.899 Other long term (current) drug therapy; Z79.82 Long term (current) use of aspirin
CPT/HCPCS: 36415; 74177; 80053; 83690; 84484; 84703; 85025; 93005; 93010; 99284-25; A9270; Q9967

== ENCOUNTER 2024-09-18 10:45 | Emergency (ER) | payer BC, OTHER ==
[~2024-09-18] VITALS: Ht 167.6 cm; Wt 120.6 kg
[~2024-09-18 10:45] MED LIST changes: +CLARITIN10 M2 PO; +POTASSIUM CHLO10 ME2 PO; +PROTONIX40 MG PO; +VITAMIN D350 MC3 PO
[2024-09-18 11:13] LABS: BASOPHILS 1.1 % (0-2); EOSINOPHILS 2.8 % (0-6); HEMATOCRIT 37.6 % (35.0-50.0); HEMOGLOBIN 12.3 g/dL (12.0-18.0); LYMPHOCYTES 15.6 % (24-44); MCH 27.3 (27-36); MCHC 32.7 g/dl (30-36); MCV 83.5 fl (81-99); MONOCYTES 5.8 % (0-12); NEUTROPHILS 74.7 % (39-80); PLATELET COUNT 385 K/uL (140-440); RDW 14.3 (10.5-15.0)
[2024-09-18 11:32] LABS: ALBUMIN 3.3 g/dL (3.4-5.0); ALBUMIN/GLOBULIN RATIO 0.69 (1.1-2.4); ALKALINE PHOSPHATASE 115 U/L (46-116); ALT (SGPT) 21 U/L (14-59); ANION GAP 11.6 (7-21); AST (SGOT) 11 U/L (15-37); BILIRUBIN, TOTAL 0.3 ng/dL (0.2-1.0); BUN/CREATININE RATIO 16.88 (6.0-28.6); CALCIUM 9.3 mg/dL (8.5-10.1); CARBON DIOXIDE 28 mmol/L (21-32); CHLORIDE 103 mmol/L (98-107); CREATININE, SERUM 0.77 mg/dL (0.55-1.02); GLOMERULAR FILTRATION RATE,EST 102 mL/min (>60); POTASSIUM 3.6 mmol/L (3.5-5.1); PROTEIN, TOTAL 8.1 g/dL (6.4-8.2); UREA NITROGEN 13 mg/dL (7-18)
[2024-09-18 13:25] LABS: BILIRUBIN, URINE NEGATIVE (negative); BLOOD/HGB, URINE SMALL (Negative); KETONE, URINE NEGATIVE (Negative); LEUK ESTERASE, URINE NEGATIVE (negative); NITRITE, URINE NEGATIVE (negative); PH, URINE 6.5 (5-7)
[2024-09-18 13:36] LABS: EPITHELIAL CELLS, URINE SQUAMOUS 1+ /lpf (0-1+); REFLEX CULTURE, URINE No (No); WHITE BLOOD CELLS, URINE 0-1 /HPF (0-5)
[2024-09-18 14:10] VITALS: BP 135/72
--- NOTE | 2024-09-19 22:53 | EKG ---
[facility] [address] [facility] [place] [address] Signed Normal sinus rhythm Normal ECG When compared with ECG of 31-JUL-2024 02:04, No significant change was found Confirmed by Brittaney Pacheco MD () on 09/19/2024 10:53:09 PM Electronically Signed By: BRITTANEY PACHECO MD 09/19/24 2253 PATIENT NAME: EVE BERNABE Electrocardiogram DATE OF : [birth year] PHYSICIAN: BRITTANEY PACHECO MD REPORT #: [id number] REPORT IS CONFIDENTIAL AND NOT TO BE RELEASED WITHOUT AUTHORIZATION
== END 2024-09-18 14:13 | disposition home or self-care (01) ==
LOC: ED 10:45
PROVIDERS: Emergency Medicine
DX: R00.2 Palpitations (principal); I25.2 Old myocardial infarction; Z88.5 Allergy status to narcotic agent; Z91.09 Other allergy status, other than to drugs and biological substances; Z79.899 Other long term (current) drug therapy; Z79.82 Long term (current) use of aspirin
CPT/HCPCS: 36415; 80053; 81001; 83735; 84484; 85025; 93005; 93010; 99285

== ENCOUNTER 2024-10-20 05:16 | Emergency (ER) | payer BC, OTHER ==
[~2024-10-20] VITALS: Ht 167.6 cm
[2024-10-20] MEDS ORDERED: ASPIRIN 81 MG CHEW PO ONE (05:30)
[2024-10-20] MEDS ORDERED: NITROGLYCERIN PACKET TOP ONE (05:30)
[2024-10-20 05:38] LABS: BASOPHILS 1.1 % (0-2); EOSINOPHILS 4.2 % (0-6); HEMOGLOBIN 12.1 g/dL (12.0-18.0); LYMPHOCYTES 26.1 % (24-44); MCH 27.9 (27-36); MCHC 33.5 g/dl (30-36); MCV 83.2 fl (81-99); MONOCYTES 5.6 % (0-12); PLATELET COUNT 376 K/uL (140-440); RBC 4.33 M/ul (4.3-5.7); RDW 14.5 (10.5-15.0)
[2024-10-20 06:02] LABS: ALBUMIN 3.3 g/dL (3.4-5.0); ALKALINE PHOSPHATASE 105 U/L (46-116); ALT (SGPT) 23 U/L (14-59); ANION GAP 13.5 (7-21); AST (SGOT) 14 U/L (15-37); BILIRUBIN, TOTAL 0.4 ng/dL (0.2-1.0); BUN/CREATININE RATIO 17.07 (6.0-28.6); CALCIUM 9.2 mg/dL (8.5-10.1); CARBON DIOXIDE 27 mmol/L (21-32); CHLORIDE 101 mmol/L (98-107); CREATININE, SERUM 0.82 mg/dL (0.55-1.02); GLOMERULAR FILTRATION RATE,EST 95 mL/min (>60); MAGNESIUM 2.2 mg/dL (1.8-2.4); POTASSIUM 3.5 mmol/L (3.5-5.1); UREA NITROGEN 14 mg/dL (7-18)
[2024-10-20 06:22] LABS: INR 0.95 (0.80-1.30); PROTIME 12.3 Sec (11.2-14.2)
[2024-10-20] MEDS ORDERED: CYCLOBENZAPRINE HCL 10 MG HOME.PACK PO ONE (07:30)
[2024-10-20 07:36] VITALS: BP 117/77
--- NOTE | 2024-10-20 12:05 | EKG ---
[facility] [address] [facility] [place], [place] [address] Signed Normal sinus rhythm Normal ECG When compared with ECG of 18-SEP-2024 10:59, No significant change was found Confirmed by Lani Martinez MD ([id number]) on 10/20/2024 12:05:39 PM Electronically Signed By: LANI MARTINEZ 10/20/24 1205 PATIENT NAME: ZEFERINOFRANCIEVE Electrocardiogram DATE OF : [birth year] PHYSICIAN: LANI MARTINEZ REPORT #: [id number] REPORT IS CONFIDENTIAL AND NOT TO BE RELEASED WITHOUT AUTHORIZATION
== END 2024-10-20 07:30 | disposition home or self-care (01) ==
LOC: ED 05:16
PROVIDERS: Family Medicine
DX: R07.89 Other chest pain (principal); I25.2 Old myocardial infarction; J45.909 Unspecified asthma, uncomplicated; Z86.16 Personal history of COVID-19; Z88.5 Allergy status to narcotic agent; Z91.013 Allergy to seafood; Z91.048 Other nonmedicinal substance allergy status; Z79.82 Long term (current) use of aspirin; Z79.51 Long term (current) use of inhaled steroids; Z79.899 Other long term (current) drug therapy
CPT/HCPCS: 36415; 71045; 80053; 83735; 84484; 84703; 85025; 85379; 85610; 93005; 93010; 99285-25; A9270

== ENCOUNTER 2025-01-06 01:25 | Emergency (ER) | payer BC, OTHER ==
[~2025-01-06] VITALS: Ht 167.6 cm; Wt 119.0 kg
[2025-01-06] MEDS ORDERED: OMEPRAZOLE40 MG PO (01:41)
[2025-01-06] MEDS ORDERED: AMLODIPINE BESY10 MG PO (01:41)
[2025-01-06 01:45] LABS: EOSINOPHILS 3.5 % (0-6); HEMOGLOBIN 12.3 g/dL (12.0-18.0); LYMPHOCYTES 25.9 % (24-44); MCH 26.9 (27-36); MCHC 33.3 g/dl (30-36); MCV 80.8 fl (81-99); MONOCYTES 6.3 % (0-12); NEUTROPHILS 63.3 % (39-80); PLATELET COUNT 453 K/uL (140-440); RBC 4.58 M/ul (4.3-5.7); RDW 14.4 (10.5-15.0)
[2025-01-06] MEDS ORDERED: ASPIRIN 81 MG CHEW PO ONE (01:45)
[2025-01-06 02:07] LABS: ALBUMIN 3.2 g/dL (3.4-5.0); ALBUMIN/GLOBULIN RATIO 0.73 (1.1-2.4); ANION GAP 11.1 (7-21); BILIRUBIN, TOTAL 0.3 mg/dL (0.2-1.0); BUN/CREATININE RATIO 16.21 (6.0-28.6); CALCIUM 8.8 mg/dL (8.5-10.1); CREATININE, SERUM 0.74 mg/dL (0.55-1.02); MAGNESIUM 1.8 mg/dL (1.8-2.4); POTASSIUM 3.1 mmol/L (3.5-5.1); PROTEIN, TOTAL 7.6 g/dL (6.4-8.2)
[2025-01-06] MEDS ORDERED: POTASSIUM CHLORIDE 10 MEQ TABCR PO ONE (02:15)
[2025-01-06 03:11] VITALS: BP 114/68
--- NOTE | 2025-01-06 15:51 | EKG ---
[facility] [address] [facility] [place] [address] Signed Normal sinus rhythm Normal ECG When compared with ECG of 20-OCT-2024 05:23, No significant change was found Confirmed by Frederic Ponce DO ([id number]) on 01/06/2025 3:51:01 PM Electronically Signed By: FREDERIC PONCE DO 01/06/25 1551 PATIENT NAME: EVE BERNABE Electrocardiogram DATE OF : 86 PHYSICIAN: FREDERIC PONCE DO REPORT #: [id number] REPORT IS CONFIDENTIAL AND NOT TO BE RELEASED WITHOUT AUTHORIZATION
== END 2025-01-06 03:12 | disposition home or self-care (01) ==
LOC: ED 01:25
PROVIDERS: Family Medicine
DX: R07.89 Other chest pain (principal); I25.2 Old myocardial infarction; J45.909 Unspecified asthma, uncomplicated; Z86.16 Personal history of COVID-19; Z88.5 Allergy status to narcotic agent; Z91.013 Allergy to seafood; Z91.048 Other nonmedicinal substance allergy status; Z79.82 Long term (current) use of aspirin; Z79.899 Other long term (current) drug therapy
CPT/HCPCS: 36415; 71045; 80053; 83735; 83880; 84484; 85025; 93005; 93010; 99285-25; A9270

== ENCOUNTER 2025-07-19 01:02 | Emergency (ER) | payer BC, OTHER ==
[~2025-07-19] VITALS: Ht 167.6 cm; Wt 119.0 kg
[~2025-07-19 01:02] MED LIST changes: +AMLODIPINE BESY10 MG PO; +OMEPRAZOLE40 MG PO
[2025-07-19 01:38] LABS: BASOPHILS 1.0 % (0.1-1.2); EOSINOPHILS 4.4 % (0.7-5.8); LYMPHOCYTES 32.7 % (19.3-51.7); MCH 25.0 PG (25.6-32.2); MCHC 31.4 g/dL (32.2-35.5); MCV 79.6 fL (79.4-94.8); MONOCYTES 6.6 % (4.7-12.5); NEUTROPHILS 54.6 % (34.0-71.1); RBC 4.60 M/uL (3.93-5.22)
[2025-07-19] MEDS ORDERED: ASPIRIN 81 MG CHEW PO ONE (01:45)
[2025-07-19] MEDS ORDERED: NITROGLYCERIN 0.4 MG SUBL SL PRN (01:45)
[2025-07-19 01:51] LABS: ALT (SGPT) 16 U/L (14-59); AST (SGOT) 10 U/L (15-37); GLOMERULAR FILTRATION RATE,EST 122 mL/min (>60); PROTEIN, TOTAL 7.9 g/dL (6.4-8.2); UREA NITROGEN 10 mg/dL (7-18)
[2025-07-19] MEDS ORDERED: KETOROLAC TROMETHAMINE 30 MG/ML VIAL IV ONE (02:30)
[2025-07-19 03:01] VITALS: BP 103/59
--- NOTE | 2025-07-22 10:40 | EKG ---
[facility] [address] [facility] [place], [place] [address] Signed Normal sinus rhythm Normal ECG When compared with ECG of 06-JAN-2025 01:29, No significant change was found Confirmed by Frederic Ponce DO ([id number]) on 07/22/2025 10:40:19 AM Electronically Signed By: FREDERIC PONCE DO 07/22/25 1040 PATIENT NAME: EVE BERNABE Electrocardiogram DATE OF : 86 PHYSICIAN: FREDERIC PONCE DO REPORT #: [id number] REPORT IS CONFIDENTIAL AND NOT TO BE RELEASED WITHOUT AUTHORIZATION
== END 2025-07-19 03:02 | disposition home or self-care (01) ==
LOC: ED 01:02
PROVIDERS: Emergency Medicine
DX: R07.9 Chest pain, unspecified (principal); J45.909 Unspecified asthma, uncomplicated; I10 Essential (primary) hypertension; Z88.5 Allergy status to narcotic agent; Z91.013 Allergy to seafood; Z91.048 Other nonmedicinal substance allergy status; Z79.82 Long term (current) use of aspirin; Z79.899 Other long term (current) drug therapy
CPT/HCPCS: 36415; 71045; 80053; 83735; 84484; 85025; 93005; 93010; 96374; 99285-25; J1885